=== PATIENT | female | born 2000 | race Caucasian/White ===

== ENCOUNTER 2021-07-22 15:23 | Inpatient (IN) ==
--- NOTE | 2021-07-22 21:53 | History & Physical Report ---
Date of Service July 22, 2021 Assessment & Plan (1) Unfavorable cervix in term : Plan: cervical balloon successfully placed plan continuation of IOL in the am 07/23/21 written and verbal instructions given to patient Admission and Anticipated Discharge Date Admission Date: July 22, 2021 History of Present Illness Primary Care Provider: Chencho Cassidy DO Patient is a 20 yo white female EDC 07/17/21 who presents for cervical balloon placement because of unfavorable cervix at 40 5/7 weeks. She was having what she thought were regular contractions but cervical exam is unchanged from exam yesterday. (-) SPROM (-) bloody show. GBS-positive Allergies Allergy/AdvReac Type Severity Reaction Status Date / Time amoxicillin Allergy Mild rash Verified 07/21/21 11:25 Home Medications Medication Instructions Recorded Confirmed Type venlafaxine 37.5 mg 37.5 mg PO DAILY 03/30/21 07/22/21 History capsule,extended release 24 hr (Effexor XR) [id number] 1 mg 1 tab PO DAILY 07/22/21 07/22/21 History tablet Patient History Medical History (Updated 07/22/21 @ 21:55 by aMrylou Abbott MD, FACOG) Cyclothymic disorder History of drug dependence Surgical History (Updated 03/30/21 @ 11:22 by Kari Jimenez RN) H/O oral surgery Family History (Updated 04/14/21 @ 14:11 by Kari Jimenez RN) Mother Hypertension Denies family history of Ovarian cancer Prostate cancer Breast cancer Colorectal cancer Social History (Updated 04/14/21 @ 14:15 by Kari Jimenez RN) Smoking Status: Never smoker Second Hand Exposure: No; Hx Alcohol Use: No Hx Substance Use: Yes Non-Prescribed Medications Comment: meth and herion Last Used Substance Other:: over a year Substance Use Type Other:: meth Preferred Language: Czech Visual Impairment: No Limitations Hearing Ability: Normal Beliefs That Will Affect Care: None marital status: Single marital status details: Gokul Muñiz (21) [phone] Current Living Situation: Significant Other Current Living Situation Comment: lives with FOB and 1 cat. 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 Feels Safe at Home: Yes Safety Concerns: Feels Safe At This Time Review of Systems All systems reviewed & are unremarkable except as noted in HPI & below Physical Exam Constitutional: WD/WN, vitals as above Respiratory: normal respiratory effort, lungs clear to auscultation Cardiovascular: RRR, no murmur, no edema Psychiatric: A+Ox3, euthymic affect Genitourinary: OB Exam Abdomen: + vertex, + estimated weight (7-8 pounds) and + irregular contractions Manual OB Exam: + cervical dilation 1 cm, + cervical effacement 80% and + station 0 OB Exam Monitor Tracing: + external FHT monitor used, + external uterine monitor used, + category I and + normal FHT variability speculum placed vaginally and cervix visualized. Quan catheter placed easily into the cervix . 40cc water placed into the balloon and the catheter then placed on traction and attached to left thigh. patient tolerated procedure well. Results & Data ([facility]) Vital Signs (Past 12 Hours) Vital Signs Temp Resp BP 07/22/21 20:23 98.6 F 07/22/21 19:17 18 07/22/21 19:14 135/98 Coding Level of Care Code 78351 Office/Outpt Visit, Est Diagnoses Unfavorable cervix in term O34.40 CPT Codes Misx Procedure Codes - 70472 Placement of cervical dilator: 01378 Placement of cervical dilator ([id number])
[2021-07-23] MEDS ORDERED: VENLAFAXINE HCL XR 37.5 MG CAPXR PO SCH (09:00)
== END 2021-07-22 22:20 | disposition home or self-care (01) | DRG 833 ==
LOC: 4S1 18:48

== ENCOUNTER 2021-07-23 07:39 | Inpatient (IN) ==
[2021-07-23 08:34] LABS: Amphetamines+Metham, Urine Neg (Neg); Barbiturates, Urine Neg (Neg); Benzodiazepine, Urine Neg (Neg); Cocaine, Urine Neg (Neg); MDMA (Ecstacy), Urine Neg (Neg); Methadone, Urine Neg (Neg); Opiate, Urine Neg (Neg); Phencyclidine, Urine Neg (Neg)
[2021-07-23] MEDS ORDERED: PENICILLIN G POTASSIUM 6 MU in DEXTROSE 5% 250 ML IV STA (08:49)
[2021-07-23] MEDS ORDERED: OXYTOCIN 30 UNITS/500 ML BAG IV PRN ×2 (08:49)
--- NOTE | 2021-07-23 09:06 | Communication Note ---
Date of Service: July 23, 2021 S: Patient seen to document cervical exam in anticipation of scheduled IOL today. She had a manley placed last night, reports it fell out at 0400. Loss of mucus plug continues since then. No VB, ctx, LOF. Has good FM. O: /-2/soft/ant, FHT Cat 1 A: Planned IOL today for Postdates. Will need abx for GBS positivity P: PCN ordered (has allergy, listed only as rash therefore PCN is recommended) and Pitocin is ordered. Management to be per covering MD today, Dr. Ortiz.
[2021-07-23] MEDS: LACTATED RINGER'S 1,000 ML IV PRN ×2 (09:10→13:00)
[2021-07-23 09:22] LABS: Hematocrit (blood only) 30.9 % (37-47); Hemoglobin 9.9 g/dL (12.0-16.0); Mean Corpuscular Hemoglobin 27.7 pg (25-34); Mean Corpuscular Volume 86.3 fL (80-100); Mean Platelet Volume 12.3 fL (7.4-10.4); Nucleated RBC # (auto) 0.03 K/uL (0-0); Nucleated RBC % (auto) 0.2 %; Platelet Count 213 K/uL (130-400); RDW Coefficient of Variation 14.1 % (11.5-14.5); RDW Standard Deviation 44.2 fL (36.4-46.3); Red Blood Count 3.58 M/uL (4.2-5.4); White Blood Count 12.07 K/uL (4.8-10.8)
[2021-07-23] MEDS ORDERED: BUPIVACAINE 0.25% 30 ML VIAL ONE (12:23)
[2021-07-23] MEDS ORDERED: fentaNYL citrate 100 MCG/2 ML VIAL ONE ×2 (12:23→20:04)
[2021-07-23] MEDS ORDERED: ePHEDrine sulfate 50 MG/ML AMP ONE (12:23)
[2021-07-23] MEDS ORDERED: SODIUM CHLORIDE 0.9% INJ 10 ML VIAL ONE (12:23)
[2021-07-23] MEDS ORDERED: fentaNYL 2MCG/ML ROPIVACAINE 1.25MG/ML 100 ML BAG EPI ONE (12:24)
[2021-07-23] MEDS ORDERED: NALOXONE HCL 0.4 MG/1 ML VIAL/CARP IV PRN ×2 (12:36→19:58)
[2021-07-23] MEDS ORDERED: ePHEDrine sulfate 50 MG/ML AMP IV PRN ×2 (12:36→19:58)
[2021-07-23] MEDS ORDERED: NALBUPHINE HCL INJ 10 MG/ML AMP IV PRN ×2 (12:36→19:58)
[2021-07-23] MEDS ORDERED: ONDANSETRON INJ 2 MG/ML 2 ML VIAL IV PRN ×3 (12:36→21:49)
[2021-07-23] MEDS ORDERED: diphenhydrAMINE 50 MG/ML VIAL IV PRN ×2 (12:36→19:58)
[2021-07-23] MEDS ORDERED: NALOXONE HCL 1 MG in SODIUM CHLORIDE 0.9% 1000ML 1,000 ML IV PRN ×2 (12:36→19:58)
--- NOTE | 2021-07-23 12:40 | Anesthesiology Consultation ---
Date of Service July 23, 2021 Assessment & Plan Chart Review Chart Review: Patient NOT seen in Pre Admission Testing and Acceptable Risk for Labor Epidural Consults Requested none ASA ASA2 Proposed Anesthesia Anesthesia Type: Labor Epidural and CSE Risk / Benefits Reviewed With: PT / POA / Parent / Guardian, Accepts Plan and Informed Consent Obtained History Height/Weight Height: 5 ft 4 in Weight: 79.5 kg Allergies Allergy/AdvReac Type Severity Reaction Status Date / Time amoxicillin Allergy Mild rash Verified 07/21/21 11:25 Medications Home Medications Medication Instructions Recorded Confirmed Last Taken venlafaxine 37.5 mg 37.5 mg PO DAILY 03/30/21 07/23/21 Unknown capsule,extended release 24 hr (Effexor XR) [id number]-[id number] 1 mg 1 tab PO DAILY 07/22/21 07/23/21 07/16/21 tablet Active Medications Generic Name Dose Route Start Last Admin Trade Name Freq PRN Reason Stop Dose Admin Oxytocin 30 units in 500 mls @ 11 mls/hr 07/23/21 08:49 07/23/21 11:55 Pitocin IV 07/25/21 08:48 0.66 units/hr .Q24H PRN 11 mls/hr Labor Induction/Augmentation Titration Protocol 0.66 UNITS/HR Lactated Ringer's 1,000 mls @ 125 mls/hr 07/23/21 08:49 07/23/21 12:15 Lr IV 07/25/21 08:48 999 mls/hr .Q8H PRN Infusion L&D Protocol Protocol NPO Date Last Intake of Fluids: 07/23/21 Time Last Intake of Fluids: 12:00 Date Last Intake of Solids: 07/23/21 Time Last Intake of Solids: 06:30 Past Medical History Medical History Cyclothymic disorder Gestational diabetes mellitus (GDM) affecting , antepartum Hepatitis C History of drug dependence Exercise / Class Metabolic Activity II 4-5 Yardwork/Stairs/Walk up hill Past Family History Family History Mother Hypertension Denies family history of Ovarian cancer Prostate cancer Breast cancer Colorectal cancer Past Surgical History Surgical History H/O oral surgery Past Anesthesia History No Hx of Anesthesia Complications and No Family Hx of Anesthesia Complications History of PONV No Hx of PONV and No Hx of Motion Sickness Social History Smoking Status: Never smoker Hx Alcohol Use: No Hx Substance Use: No substance use type: heroin Substance Use Type Other:: meth Last Used Substance Other:: over a year Review of Systems no chest pain or sob Physical Exam Vital Signs Last Vital Signs Temp 38.6 C H 07/23/21 12:01 Pulse 91 H 07/23/21 12:29 Resp 18 07/23/21 12:01 BP 124/63 07/23/21 12:04 Pulse Ox 100 07/23/21 12:29 ENMT Mouth: no TMJ abnormality Thyromental Distance: > or= 3.5 Finger Breadths Mallampati Class: II Neck normal visual inspection Respiratory normal respiratory effort Auscultation: lungs clear to auscultation bilaterally Cardiovascular Rate/Rhythm: regular rate and regular rhythm Musculoskeletal Spine: normal cervical ROM Neurologic moves all extremities Psychiatric Orientation: alert and oriented x 3 Testing Laboratory Results 07/23/21 09:05
[2021-07-23] MEDS: fentaNYL 2MCG/ML ROPIVACAINE 1.25MG/ML 100 ML BAG EPI PRN ×2 (12:59→18:50)
[2021-07-23] MEDS: PENICILLIN G POTASSIUM 3 MU in DEXTROSE 5% 100 ML IV PRN ×2 (13:37→17:56)
--- NOTE | 2021-07-23 16:01 | Labor Progress Brief Note ---
Date of Service July 23, 2021 Patient was supposed to be induced yesterday but had to be delayed due to dizziness of the unit she has induced with Pitocin today she had a cervical Quan last night artificial rupture of membranes was done after epidural contraction pattern is not great yet so an IUPC was just placed we will monitor the contraction process for Assessment & Plan Admission and Anticipated Discharge Date Admission Date: July 23, 2021 Results & Data ([facility]) Vital Signs (Past 12 Hours) Vital Signs Temp Pulse Resp BP Pulse Ox 07/23/21 15:56 76 100 07/23/21 15:51 79 100 07/23/21 15:47 77 130/72 07/23/21 15:46 78 97 07/23/21 15:42 80 94 07/23/21 15:41 73 96 07/23/21 15:36 82 96 07/23/21 15:32 81 118/70 07/23/21 15:31 97 H 99 07/23/21 15:26 92 H 98 07/23/21 15:21 79 98 07/23/21 15:18 71 110/68 07/23/21 15:16 85 97 07/23/21 15:15 98.6 F 16 07/23/21 15:11 75 98 07/23/21 15:06 97 H 100 07/23/21 15:02 83 124/82 07/23/21 15:01 83 99 07/23/21 14:56 86 98 07/23/21 14:51 79 98 07/23/21 14:46 76 97 07/23/21 14:41 64 99 07/23/21 14:37 98.2 F 18 07/23/21 14:36 90 100 07/23/21 14:33 79 120/59 L 07/23/21 14:31 73 99 07/23/21 14:26 70 99 07/23/21 14:21 69 100 07/23/21 14:17 81 125/72 07/23/21 14:16 84 100 07/23/21 14:11 82 99 07/23/21 14:06 92 H 100 07/23/21 14:02 72 123/76 07/23/21 14:01 86 99 07/23/21 13:56 79 99 07/23/21 13:51 80 99 07/23/21 13:48 68 127/67 07/23/21 13:46 67 99 07/23/21 13:41 84 98 07/23/21 13:36 71 100 07/23/21 13:32 71 111/57 L 07/23/21 13:31 79 96 07/23/21 13:26 89 99 07/23/21 13:21 88 99 07/23/21 13:18 88 117/76 07/23/21 13:16 81 100 07/23/21 13:14 98 H 113/69 07/23/21 13:12 77 124/64 07/23/21 13:11 87 98 07/23/21 13:10 82 125/70 07/23/21 13:08 81 126/77 07/23/21 13:06 79 118/66 97 07/23/21 13:05 18 07/23/21 13:04 88 119/66 07/23/21 13:02 87 115/72 07/23/21 13:01 90 99 07/23/21 13:00 86 122/75 07/23/21 12:58 84 127/77 07/23/21 12:56 93 H 126/82 100 07/23/21 12:54 88 137/78 07/23/21 12:51 86 100 07/23/21 12:46 85 100 07/23/21 12:29 91 H 100 07/23/21 12:04 73 124/63 07/23/21 12:01 98.4 F 18 07/23/21 11:26 72 120/71 07/23/21 11:25 97.9 F 18 07/23/21 11:00 18 07/23/21 10:35 78 116/74 07/23/21 09:30 90 121/65 07/23/21 07:45 98.2 F 109 H 18 123/74 Coding Level of Care Code None
--- NOTE | 2021-07-23 18:45 | Labor Progress Brief Note ---
Date of Service July 23, 2021 Patient is still 4 cm there is been very little change since this morning she started off at 3 cm there is some molding palpated the IUPC is registering at least 200 milliunits per 10-minute block there is some dysfunctional labor pattern as well despite the fact that we have a fairly high level of Pitocin. The heart rate is category 1 We discussed the potential reasons for the delayed progress I still would like to give her more time we did discuss if there is no change at all that we may have to consider the option of section at this stage though I do not think she has met the criteria I will check her again in an hour's time Assessment & Plan Admission and Anticipated Discharge Date Admission Date: July 23, 2021 Results & Data ([facility]) Vital Signs (Past 12 Hours) Vital Signs Temp Pulse Resp BP Pulse Ox 07/23/21 18:41 99 H 100 07/23/21 18:36 90 100 07/23/21 18:31 101 H 100 07/23/21 18:26 72 100 07/23/21 18:21 84 100 07/23/21 18:17 82 126/58 L 07/23/21 18:16 80 100 07/23/21 18:11 79 99 07/23/21 18:06 79 99 07/23/21 18:02 72 113/56 L 07/23/21 18:01 76 99 07/23/21 17:56 81 99 07/23/21 17:51 88 99 07/23/21 17:46 81 119/74 97 07/23/21 17:41 82 98 07/23/21 17:36 82 99 07/23/21 17:31 107 H 116/73 99 07/23/21 17:26 87 99 07/23/21 17:21 84 99 07/23/21 17:18 72 117/72 07/23/21 17:16 79 99 07/23/21 17:11 75 99 07/23/21 17:06 84 97 07/23/21 17:03 88 102/62 07/23/21 17:01 89 98 07/23/21 16:56 90 99 07/23/21 16:51 76 99 07/23/21 16:46 70 125/68 100 07/23/21 16:41 70 99 07/23/21 16:36 78 94 07/23/21 16:33 70 121/59 L 07/23/21 16:31 86 99 07/23/21 16:26 80 100 07/23/21 16:22 78 90 07/23/21 16:21 75 98 07/23/21 16:16 71 126/68 99 07/23/21 16:11 71 99 07/23/21 16:06 66 99 07/23/21 16:02 76 122/64 07/23/21 16:01 79 99 07/23/21 15:56 76 100 07/23/21 15:51 79 100 07/23/21 15:47 77 130/72 07/23/21 15:46 78 97 07/23/21 15:42 80 94 07/23/21 15:41 73 96 07/23/21 15:36 82 96 07/23/21 15:32 81 118/70 07/23/21 15:31 97 H 99 07/23/21 15:26 92 H 98 07/23/21 15:21 79 98 07/23/21 15:18 71 110/68 07/23/21 15:16 85 97 07/23/21 15:15 98.6 F 16 07/23/21 15:11 75 98 07/23/21 15:06 97 H 100 07/23/21 15:02 83 124/82 07/23/21 15:01 83 99 07/23/21 14:56 86 98 07/23/21 14:51 79 98 07/23/21 14:46 76 97 07/23/21 14:41 64 99 07/23/21 14:37 98.2 F 18 07/23/21 14:36 90 100 07/23/21 14:33 79 120/59 L 07/23/21 14:31 73 99 07/23/21 14:26 70 99 07/23/21 14:21 69 100 07/23/21 14:17 81 125/72 07/23/21 14:16 84 100 07/23/21 14:11 82 99 07/23/21 14:06 92 H 100 07/23/21 14:02 72 123/76 07/23/21 14:01 86 99 07/23/21 13:56 79 99 07/23/21 13:51 80 99 07/23/21 13:48 68 127/67 07/23/21 13:46 67 99 07/23/21 13:41 84 98 07/23/21 13:36 71 100 07/23/21 13:32 71 111/57 L 07/23/21 13:31 79 96 07/23/21 13:26 89 99 07/23/21 13:21 88 99 07/23/21 13:18 88 117/76 07/23/21 13:16 81 100 07/23/21 13:14 98 H 113/69 07/23/21 13:12 77 124/64 07/23/21 13:11 87 98 07/23/21 13:10 82 125/70 07/23/21 13:08 81 126/77 07/23/21 13:06 79 118/66 97 07/23/21 13:05 18 07/23/21 13:04 88 119/66 07/23/21 13:02 87 115/72 07/23/21 13:01 90 99 07/23/21 13:00 86 122/75 07/23/21 12:58 84 127/77 07/23/21 12:56 93 H 126/82 100 07/23/21 12:54 88 137/78 07/23/21 12:51 86 100 07/23/21 12:46 85 100 07/23/21 12:29 91 H 100 07/23/21 12:04 73 124/63 07/23/21 12:01 98.4 F 18 07/23/21 11:26 72 120/71 07/23/21 11:25 97.9 F 18 07/23/21 11:00 18 07/23/21 10:35 78 116/74 07/23/21 09:30 90 121/65 07/23/21 07:45 98.2 F 109 H 18 123/74 Coding Level of Care Code None
--- NOTE | 2021-07-23 19:38 | Labor Progress Brief Note ---
Date of Service July 23, 2021 Cervix still 4 cm molding increased this is been 6 hours continuous at the same cervical dilation and certainly in the last 3-1/2 hours adequate contractions I have suggested section the patient agrees we discussed risk benefits and alternatives including the option of continuing labor section. The patient was counseled to the nature of the procedure including alternatives such as labor. Risks were discussed including bleeding infection injury to bowel bladder ureter vessels and even baby. Deep Vein thrombosis, pulmonary embolus discussed. Breakdown of incision reviewed. Deep vein thrombosis pulmonary embolus hernia and failure of the incision to heal were discussed Patient verbalized understanding of this and was given ample time to ask questions Assessment & Plan Admission and Anticipated Discharge Date Admission Date: July 23, 2021 Results & Data ([facility]) Vital Signs (Past 12 Hours) Vital Signs Temp Pulse Resp BP Pulse Ox 07/23/21 19:31 108 H 100 07/23/21 19:26 90 97 07/23/21 19:21 96 H 99 07/23/21 19:18 80 119/75 07/23/21 19:16 91 H 97 07/23/21 19:11 104 H 99 07/23/21 19:06 91 H 99 07/23/21 19:03 90 137/70 07/23/21 19:01 88 99 07/23/21 19:00 99.1 F 18 07/23/21 18:56 105 H 100 07/23/21 18:51 90 100 07/23/21 18:47 105 H 130/61 07/23/21 18:46 92 H 100 07/23/21 18:41 99 H 100 07/23/21 18:36 90 100 07/23/21 18:31 101 H 100 07/23/21 18:26 72 100 07/23/21 18:21 84 100 07/23/21 18:17 82 126/58 L 07/23/21 18:16 80 100 07/23/21 18:11 79 99 07/23/21 18:06 79 99 07/23/21 18:02 72 113/56 L 07/23/21 18:01 76 99 07/23/21 17:56 81 99 07/23/21 17:51 88 99 07/23/21 17:46 81 119/74 97 07/23/21 17:41 82 98 07/23/21 17:36 82 99 07/23/21 17:31 107 H 116/73 99 07/23/21 17:26 87 99 07/23/21 17:21 84 99 07/23/21 17:18 72 117/72 07/23/21 17:16 79 99 07/23/21 17:11 75 99 07/23/21 17:06 84 97 07/23/21 17:03 88 102/62 07/23/21 17:01 89 98 07/23/21 16:56 90 99 07/23/21 16:51 76 99 07/23/21 16:46 70 125/68 100 07/23/21 16:41 70 99 07/23/21 16:36 78 94 07/23/21 16:33 70 121/59 L 07/23/21 16:31 86 99 07/23/21 16:26 80 100 07/23/21 16:22 78 90 07/23/21 16:21 75 98 07/23/21 16:16 71 126/68 99 07/23/21 16:11 71 99 07/23/21 16:06 66 99 07/23/21 16:02 76 122/64 07/23/21 16:01 79 99 07/23/21 15:56 76 100 07/23/21 15:51 79 100 07/23/21 15:47 77 130/72 07/23/21 15:46 78 97 07/23/21 15:42 80 94 07/23/21 15:41 73 96 07/23/21 15:36 82 96 07/23/21 15:32 81 118/70 07/23/21 15:31 97 H 99 07/23/21 15:26 92 H 98 07/23/21 15:21 79 98 07/23/21 15:18 71 110/68 07/23/21 15:16 85 97 07/23/21 15:15 98.6 F 16 07/23/21 15:11 75 98 07/23/21 15:06 97 H 100 07/23/21 15:02 83 124/82 07/23/21 15:01 83 99 07/23/21 14:56 86 98 07/23/21 14:51 79 98 07/23/21 14:46 76 97 07/23/21 14:41 64 99 07/23/21 14:37 98.2 F 18 07/23/21 14:36 90 100 07/23/21 14:33 79 120/59 L 07/23/21 14:31 73 99 07/23/21 14:26 70 99 07/23/21 14:21 69 100 07/23/21 14:17 81 125/72 07/23/21 14:16 84 100 07/23/21 14:11 82 99 07/23/21 14:06 92 H 100 07/23/21 14:02 72 123/76 07/23/21 14:01 86 99 07/23/21 13:56 79 99 07/23/21 13:51 80 99 07/23/21 13:48 68 127/67 07/23/21 13:46 67 99 07/23/21 13:41 84 98 07/23/21 13:36 71 100 07/23/21 13:32 71 111/57 L 07/23/21 13:31 79 96 07/23/21 13:26 89 99 07/23/21 13:21 88 99 07/23/21 13:18 88 117/76 07/23/21 13:16 81 100 07/23/21 13:14 98 H 113/69 07/23/21 13:12 77 124/64 07/23/21 13:11 87 98 07/23/21 13:10 82 125/70 07/23/21 13:08 81 126/77 07/23/21 13:06 79 118/66 97 07/23/21 13:05 18 07/23/21 13:04 88 119/66 07/23/21 13:02 87 115/72 07/23/21 13:01 90 99 07/23/21 13:00 86 122/75 07/23/21 12:58 84 127/77 07/23/21 12:56 93 H 126/82 100 07/23/21 12:54 88 137/78 07/23/21 12:51 86 100 07/23/21 12:46 85 100 07/23/21 12:29 91 H 100 07/23/21 12:04 73 124/63 07/23/21 12:01 98.4 F 18 07/23/21 11:26 72 120/71 07/23/21 11:25 97.9 F 18 07/23/21 11:00 18 07/23/21 10:35 78 116/74 07/23/21 09:30 90 121/65 07/23/21 07:45 98.2 F 109 H 18 123/74 Coding Level of Care Code None
[2021-07-23] MEDS ORDERED: CITRIC ACID/SODIUM CITRATE 15 ML UDC PO SCH (19:45)
[2021-07-23] MEDS ORDERED: LACTATED RINGER'S 1,000 ML IV SCH ×2 (19:45→21:49)
[2021-07-23] MEDS ORDERED: ceFAZolin 2000MG 2,000 MG/15 ML SYR IV SCH (19:45)
[2021-07-23] MEDS ORDERED: LACTATED RINGER'S 500 ML IV PRN (19:58)
[2021-07-23] MEDS ORDERED: MoRPHine SULFATE PF 1 MG/ML 10 ML AMP/VIAL EPI ONE (19:58)
[2021-07-23] MEDS ORDERED: NALOXONE HCL 0.08 MG in SYRINGE 1.8 ML IV PRN (19:58)
[2021-07-23] MEDS ORDERED: SODIUM CHLORIDE 0.9% 1000ML 1,000 ML IV SCH (20:00)
[2021-07-23] MEDS ORDERED: NO NARCOTICS OR SEDATIVES SCH (20:00)
[2021-07-23] MEDS ORDERED: DC INTRASPINAL MORPHINE SCH (20:00)
[2021-07-23] MEDS ORDERED: LIDOCAINE 2%/EPINEPHRINE 1:200,000 20 ML SDV ONE ×2 (20:04→20:24)
[2021-07-23] MEDS ORDERED: MoRPHine SULFATE PF 1 MG/ML 10 ML AMP/VIAL ONE (20:17)
[2021-07-23] MEDS ORDERED: OXYTOCIN 10 UNITS/ML VIAL ONE (20:17)
[2021-07-23] MEDS ORDERED: PHENYLEPHRINE 100MCG/ML 5ML SYR ONE (20:29)
[2021-07-23] MEDS ORDERED: ESMOLOL HCL INJ 10 MG/ML 10ML VIAL IV ONE (20:40)
[2021-07-23] MEDS ORDERED: ONDANSETRON INJ 2 MG/ML 2 ML VIAL ONE (20:41)
[2021-07-23 21:12] LABS: Cord Venous Blood HCO3 24 mmol/L (18.4-26.8); Cord Venous Blood PCO2 45 mmHg (30.4-57.2); Cord Venous Blood PO2 25 mmHg (14.1-43.3); Cord Venous Blood pH 7.35 (7.20-7.44)
[2021-07-23 21:13] LABS: Base Excess Cord Arterial Bld -2.2 mEq/L (-9-1.8); CO2 Cord Arterial Blood 61 mmHg (39.1-73.5); HCO3 Cord Arterial Blood 27 mmol/L (19.7-28.5); PO2 Cord Arterial Blood 14 mmHg (4.1-31.7); pH Cord Arterial Blood 7.26 (7.1-7.38)
--- NOTE | 2021-07-23 21:16 | Operative Report ---
PG Post Operative Report Pre & Post Diagnosis Operation Date: 07/23/21 20:15 Pre-Op Diagnosis: Term Primary Section for Failure to Progress under services of Dr Ortiz for a viable baby girl at 2035 Post-Op Diagnosis: Term Primary Section for Failure to Progress under services of Dr Ortiz for a viable baby girl at 2035 I identified the patient and participated in the time-out.: Yes Procedure Operation Date: 07/23/21 20:15 Actual Procedures p Primary Section in OR #3 for Failure To Progress for a viable baby girl at 2035. - Alejandra Otriz MD, FACOG Surgeon Alejandra Ortiz MD, FACOG [employer] . Estimated Blood Loss 600 Findings Consistent with Post-Op Diagnosis Specimens cord blood, gases Description of Procedure Regional anesthetic was given by anesthesia patient had a Quan catheter inserted by nursing patient was prepped and draped in supine position with a leftward tilt preoperative antibiotics were given timeout performed Pickups with teeth were used to test the skin site and it was found adequate for incision scalpel used to make a Pfannenstiel incision cutting down through subcutaneous fat through the fascia fascia was then dissected laterally with the curved Almodovar's fascia was released superiorly and inferiorly from the rectus muscles with the curved Almodovar scissors, rectus muscle split peritoneal cavity entered in a superior location. Opening enlarged to allow exposure bladder retractor placed Metzenbaums used to dissect away the bladder flap low segment transverse incision made on the uterus with scalpel entry was done bluntly with the double end tenon operator's finger hysterotomy incision extended with the double end tenon operator's finger in the usual fashion baby was delivered then by flexion of the head and pressure from the retirement assistant on the abdomen mouth and then nares were suctioned baby was then delivered fully without difficulty without excessive force live vigorous infant cord clamped and cut cord gases obtained cord blood obtained placenta removed manually within ensured all placenta removed with a moist lap sponge uterus exteriorized IV Pitocin had been started by anesthesia and uterine tone improved. The uterus was closed in 2 layers first layer and 0 Monocryl running locked second layer 0 Monocryl nonlocked after generous irrigation and suction of the cul-de-sac and bladder flap regions hemostasis was excellent uterus was placed back in the peritoneal cavity and hemostasis was excellent rectus muscles were inspected and found to be dry fascia closed with 0 Vicryl subcutaneous fat closed with 3-0 Vicryl prior to this subcutaneous fat was irrigated skin closed with 4-0 subcuticular Monocryl incision Steri-Stripped urine was clear at the end of the procedure uterus adnexa normal I attest to the content of the Intraoperative Record and any orders documented therein. Any exceptions are noted below. OB Procedure Charges 49497
[2021-07-23 21:26] LABS: O2 Saturation Cord Venous Bld < 60.0 % (<68); Oxygen Sat Cord Arterial Blood < 60.0 % (<60)
[2021-07-23] MEDS ORDERED: SENNA 8.6 MG TAB PO PRN (21:49)
[2021-07-23] MEDS ORDERED: DIPHTHERIA/TETANUS/PERTUSSIS 0.5 ML SYR/VIAL IM ONE (21:49)
[2021-07-23] MEDS ORDERED: MAGNESIUM HYDROXIDE SUSP 30 ML UDC PO PRN (21:49)
[2021-07-23] MEDS ORDERED: SUPERCREAM 0.870% 15 GM JAR EXT PRN (21:49)
[2021-07-23] MEDS ORDERED: PROMETHAZINE HCL 25 MG in SODIUM CHLORIDE 0.9% 50 ML IV PRN (21:49)
[2021-07-23] MEDS ORDERED: HYDROCORTISONE ACETATE 25 MG SUPP PR PRN (21:49)
[2021-07-23] MEDS ORDERED: BENZOCAINE 20% AER SPR 82.5 GM CAN EXT PRN (21:49)
[2021-07-23] MEDS ORDERED: METOPROLOL TARTRATE 1 MG/ML VIAL IV ONE ×2 (22:19→22:33)
--- NOTE | 2021-07-23 23:04 | Anesthesiology Progress Note ---
Date of Service July 23, 2021 Anesthesia Post Procedure Vital Signs Vital Signs: Temp Pulse Resp BP Pulse Ox 07/23/21 22:56 110 H 98 07/23/21 22:54 101 H 110/70 07/23/21 22:51 112 H 96 07/23/21 22:46 108 H 99 07/23/21 22:45 102 H 131/55 L 07/23/21 22:41 101 H 97 07/23/21 22:36 114 H 97 07/23/21 22:31 119 H 99 07/23/21 22:26 107 H 93 07/23/21 22:24 123 H 126/59 L 07/23/21 22:22 127 H 129/59 L 07/23/21 22:21 127 H 100 07/23/21 22:16 144 H 100 07/23/21 22:11 148 H 100 07/23/21 22:06 153 H 100 07/23/21 22:01 118 H 98 07/23/21 21:56 116 H 98 07/23/21 21:54 120 H 112/57 L 07/23/21 21:51 116 H 98 07/23/21 21:46 121 H 98 07/23/21 21:44 142 H 107/62 07/23/21 21:41 146 H 116/62 100 07/23/21 21:36 148 H 100 07/23/21 21:34 133 H 122/59 L 07/23/21 21:31 152 H 100 07/23/21 21:26 127 H 98 07/23/21 21:22 120 H 121/66 07/23/21 21:21 132 H 97 07/23/21 21:17 139 H 98/54 L 07/23/21 21:16 152 H 99 07/23/21 20:02 96 H 121/57 L 07/23/21 20:01 96 H 99 07/23/21 19:56 93 H 97 07/23/21 19:51 99 H 98 07/23/21 19:47 98 H 124/61 07/23/21 19:46 101 H 99 07/23/21 19:41 100 H 99 07/23/21 19:39 113 H 146/65 H 07/23/21 19:36 128 H 100 07/23/21 19:31 108 H 100 07/23/21 19:26 90 97 07/23/21 19:21 96 H 99 07/23/21 19:18 80 119/75 07/23/21 19:16 91 H 97 07/23/21 19:11 104 H 99 07/23/21 19:06 91 H 99 07/23/21 19:03 90 137/70 07/23/21 19:01 88 99 07/23/21 19:00 37.3 C 18 07/23/21 18:56 105 H 100 07/23/21 18:51 90 100 07/23/21 18:47 105 H 130/61 07/23/21 18:46 92 H 100 07/23/21 18:41 99 H 100 07/23/21 18:36 90 100 07/23/21 18:31 101 H 100 07/23/21 18:26 72 100 07/23/21 18:21 84 100 07/23/21 18:17 82 126/58 L 07/23/21 18:16 80 100 07/23/21 18:11 79 99 07/23/21 18:06 79 99 07/23/21 18:02 72 113/56 L 07/23/21 18:01 76 99 07/23/21 17:56 81 99 07/23/21 17:51 88 99 07/23/21 17:46 81 119/74 97 07/23/21 17:41 82 98 07/23/21 17:36 82 99 07/23/21 17:31 107 H 116/73 99 07/23/21 17:26 87 99 07/23/21 17:21 84 99 07/23/21 17:18 72 117/72 07/23/21 17:16 79 99 07/23/21 17:11 75 99 07/23/21 17:06 84 97 07/23/21 17:03 88 102/62 07/23/21 17:01 89 98 07/23/21 16:56 90 99 07/23/21 16:51 76 99 07/23/21 16:46 70 125/68 100 07/23/21 16:41 70 99 07/23/21 16:36 78 94 07/23/21 16:33 70 121/59 L 07/23/21 16:31 86 99 07/23/21 16:26 80 100 07/23/21 16:22 78 90 12/03/21 16:21 75 98 07/23/21 16:16 71 126/68 99 07/23/21 16:11 71 99 07/23/21 16:06 66 99 07/23/21 16:02 76 122/64 07/23/21 16:01 79 99 07/23/21 15:56 76 100 07/23/21 15:51 79 100 07/23/21 15:47 77 130/72 07/23/21 15:46 78 97 07/23/21 15:42 80 94 07/23/21 15:41 73 96 07/23/21 15:36 82 96 07/23/21 15:32 81 118/70 07/23/21 15:31 97 H 99 07/23/21 15:26 92 H 98 07/23/21 15:21 79 98 07/23/21 15:18 71 110/68 07/23/21 15:16 85 97 07/23/21 15:15 37.0 C 16 07/23/21 15:11 75 98 07/23/21 15:06 97 H 100 07/23/21 15:02 83 124/82 07/23/21 15:01 83 99 07/23/21 14:56 86 98 07/23/21 14:51 79 98 07/23/21 14:46 76 97 07/23/21 14:41 64 99 07/23/21 14:37 36.8 C 18 07/23/21 14:36 90 100 07/23/21 14:33 79 120/59 L 07/23/21 14:31 73 99 07/23/21 14:26 70 99 07/23/21 14:21 69 100 07/23/21 14:17 81 125/72 07/23/21 14:16 84 100 07/23/21 14:11 82 99 07/23/21 14:06 92 H 100 07/23/21 14:02 72 123/76 07/23/21 14:01 86 99 07/23/21 13:56 79 99 07/23/21 13:51 80 99 07/23/21 13:48 68 127/67 07/23/21 13:46 67 99 07/23/21 13:41 84 98 07/23/21 13:36 71 100 07/23/21 13:32 71 111/57 L 07/23/21 13:31 79 96 07/23/21 13:26 89 99 07/23/21 13:21 88 99 07/23/21 13:18 88 117/76 07/23/21 13:16 81 100 07/23/21 13:14 98 H 113/69 07/23/21 13:12 77 124/64 07/23/21 13:11 87 98 07/23/21 13:10 82 125/70 07/23/21 13:08 81 126/77 07/23/21 13:06 79 118/66 97 07/23/21 13:05 18 07/23/21 13:04 88 119/66 07/23/21 13:02 87 115/72 07/23/21 13:01 90 99 07/23/21 13:00 86 122/75 07/23/21 12:58 84 127/77 07/23/21 12:56 93 H 126/82 100 07/23/21 12:54 88 137/78 07/23/21 12:51 86 100 07/23/21 12:46 85 100 07/23/21 12:29 91 H 100 07/23/21 12:04 73 124/63 07/23/21 12:01 36.9 C 18 07/23/21 11:26 72 120/71 07/23/21 11:25 36.6 C 18 07/23/21 11:00 18 07/23/21 10:35 78 116/74 07/23/21 09:30 90 121/65 07/23/21 07:45 36.8 C 109 H 18 123/74 Pain Intensity Bilateral Abdomen: Pain Intensity: 0 Transfer of Care Handoff Completed per policy Notes Mental Status: alert / awake / arousable Patient Amnestic to Procedure: Yes Nausea / Vomiting: adequately controlled Pain: adequately controlled Airway Patency, RR, SpO2: stable & adequate BP & HR: stable & adequate and see Notes below Hydration State: stable & adequate Neuraxial Anesthesia: was administered and sensory block is resolving Anesthetic Complications: no major complications apparent and Pt Satisfied with anesthetic care Notes: The patient was anxious during the procedure and remained tachycardic throughout much of it with her HR going up to the 160s at one point. Her HR was in the 120s upon leaving the OR. In recovery her HR was in the 120s to 140s. She was given metoprolol and over one liter of LR. Her HR is now 110. Her other vital signs have been stable throughout and the patient feels well. I spoke with Dr. Ortiz about her tachycardia and he will monitor her.
[2021-07-23] MEDS: KETOROLAC 30 MG/ML VIAL IV PRN (23:20)
[2021-07-23] MEDS: OXYTOCIN 20 UNITS in LACTATED RINGER'S 1,000 ML IV SCH (23:22)
[2021-07-24] MEDS ORDERED: AMMONIA, AROMATIC INHAL 1 EA AMP INH ONE (00:05)
[2021-07-24] MEDS ORDERED: MoRPHine SULFATE 2 MG/ML CARP ONE (00:15)
[2021-07-24] MEDS ORDERED: SODIUM CHLORIDE 0.9% 250 ML IV PRN ×2 (00:17→02:21)
[2021-07-24] MEDS ORDERED: miSOPROStoL 200 MCG TAB PR ONE ×2 (00:21→04:49)
--- NOTE | 2021-07-24 00:21 | Obstetrical Progress Note ---
Date of Service July 24, 2021 Assessment & Plan Admission and Anticipated Discharge Date Admission Date: July 23, 2021 Subjective Patient had increased blood loss post vaginally and then decreased blood pressure on examination the patient's bedside there was increased vaginal bleeding the uterus was well above the fundus I was able to do a limited bimanual internal exam and there was clot in the lower segment of the uterus using a sterile glove I swept this out the uterine tone felt excellent Pitocin was running at 20 units and a liter I increase this to 40 units in a liter. Patient's blood pressure had dropped to 79/50 second line will be started and will cross and typed for 2 units and transfuse for 2 watch carefully Results & Data ([facility]) Vital Signs (Past 12 Hours) Vital Signs Temp Pulse Resp BP Pulse Ox 07/24/21 00:18 85 89/50 L 07/24/21 00:16 84 87/48 L 92 07/24/21 00:15 80 96 07/24/21 00:10 89 79/45 L 91 07/23/21 23:46 111 H 96 07/23/21 23:44 104 H 116/68 07/23/21 23:42 106 H 93 07/23/21 23:41 103 H 97 07/23/21 23:36 112 H 98 07/23/21 23:35 106 H 94 07/23/21 23:34 107 H 108/57 L 07/23/21 23:31 106 H 98 07/23/21 23:29 104 H 92 07/23/21 23:26 104 H 98 07/23/21 23:24 95 H 117/56 L 07/23/21 23:21 104 H 95 07/23/21 23:16 96 H 97 07/23/21 23:14 106 H 108/53 L 07/23/21 23:11 111 H 95 07/23/21 23:06 99 H 96 07/23/21 23:04 105 H 107/57 L 07/23/21 23:01 116 H 96 07/23/21 22:56 110 H 98 07/23/21 22:54 101 H 110/70 07/23/21 22:51 112 H 96 07/23/21 22:46 108 H 99 07/23/21 22:45 102 H 131/55 L 07/23/21 22:41 101 H 97 07/23/21 22:36 114 H 97 07/23/21 22:31 119 H 99 07/23/21 22:26 107 H 93 07/23/21 22:24 123 H 126/59 L 07/23/21 22:22 127 H 129/59 L 07/23/21 22:21 127 H 100 07/23/21 22:16 144 H 100 07/23/21 22:11 148 H 100 07/23/21 22:06 153 H 100 07/23/21 22:01 118 H 98 07/23/21 21:56 116 H 98 07/23/21 21:54 120 H 112/57 L 07/23/21 21:51 116 H 98 07/23/21 21:46 121 H 98 07/23/21 21:44 142 H 107/62 07/23/21 21:41 146 H 116/62 100 07/23/21 21:36 148 H 100 07/23/21 21:34 133 H 122/59 L 07/23/21 21:31 152 H 100 07/23/21 21:26 127 H 98 07/23/21 21:22 120 H 121/66 07/23/21 21:21 132 H 97 07/23/21 21:17 139 H 98/54 L 07/23/21 21:16 152 H 99 07/23/21 20:02 96 H 121/57 L 07/23/21 20:01 96 H 99 07/23/21 19:56 93 H 97 07/23/21 19:51 99 H 98 07/23/21 19:47 98 H 124/61 07/23/21 19:46 101 H 99 07/23/21 19:41 100 H 99 07/23/21 19:39 113 H 146/65 H 07/23/21 19:36 128 H 100 07/23/21 19:31 108 H 100 07/23/21 19:26 90 97 07/23/21 19:21 96 H 99 07/23/21 19:18 80 119/75 07/23/21 19:16 91 H 97 07/23/21 19:11 104 H 99 07/23/21 19:06 91 H 99 07/23/21 19:03 90 137/70 07/23/21 19:01 88 99 07/23/21 19:00 99.1 F 18 07/23/21 18:56 105 H 100 07/23/21 18:51 90 100 07/23/21 18:47 105 H 130/61 07/23/21 18:46 92 H 100 07/23/21 18:41 99 H 100 07/23/21 18:36 90 100 07/23/21 18:31 101 H 100 07/23/21 18:26 72 100 07/23/21 18:21 84 100 07/23/21 18:17 82 126/58 L 07/23/21 18:16 80 100 07/23/21 18:11 79 99 07/23/21 18:06 79 99 07/23/21 18:02 72 113/56 L 07/23/21 18:01 76 99 07/23/21 17:56 81 99 07/23/21 17:51 88 99 07/23/21 17:46 81 119/74 97 07/23/21 17:41 82 98 07/23/21 17:36 82 99 07/23/21 17:31 107 H 116/73 99 07/23/21 17:26 87 99 07/23/21 17:21 84 99 07/23/21 17:18 72 117/72 07/23/21 17:16 79 99 07/23/21 17:11 75 99 07/23/21 17:06 84 97 07/23/21 17:03 88 102/62 07/23/21 17:01 89 98 07/23/21 16:56 90 99 07/23/21 16:51 76 99 07/23/21 16:46 70 125/68 100 07/23/21 16:41 70 99 07/23/21 16:36 78 94 07/23/21 16:33 70 121/59 L 07/23/21 16:31 86 99 07/23/21 16:26 80 100 07/23/21 16:22 78 90 07/23/21 16:21 75 98 07/23/21 16:16 71 126/68 99 07/23/21 16:11 71 99 07/23/21 16:06 66 99 07/23/21 16:02 76 122/64 07/23/21 16:01 79 99 07/23/21 15:56 76 100 07/23/21 15:51 79 100 07/23/21 15:47 77 130/72 07/23/21 15:46 78 97 07/23/21 15:42 80 94 07/23/21 15:41 73 96 07/23/21 15:36 82 96 07/23/21 15:32 81 118/70 07/23/21 15:31 97 H 99 07/23/21 15:26 92 H 98 07/23/21 15:21 79 98 07/23/21 15:18 71 110/68 07/23/21 15:16 85 97 07/23/21 15:15 98.6 F 16 07/23/21 15:11 75 98 07/23/21 15:06 97 H 100 07/23/21 15:02 83 124/82 07/23/21 15:01 83 99 07/23/21 14:56 86 98 07/23/21 14:51 79 98 07/23/21 14:46 76 97 07/23/21 14:41 64 99 07/23/21 14:37 98.2 F 18 07/23/21 14:36 90 100 07/23/21 14:33 79 120/59 L 07/23/21 14:31 73 99 07/23/21 14:26 70 99 07/23/21 14:21 69 100 07/23/21 14:17 81 125/72 07/23/21 14:16 84 100 07/23/21 14:11 82 99 07/23/21 14:06 92 H 100 07/23/21 14:02 72 123/76 07/23/21 14:01 86 99 07/23/21 13:56 79 99 07/23/21 13:51 80 99 07/23/21 13:48 68 127/67 07/23/21 13:46 67 99 07/23/21 13:41 84 98 07/23/21 13:36 71 100 07/23/21 13:32 71 111/57 L 07/23/21 13:31 79 96 07/23/21 13:26 89 99 07/23/21 13:21 88 99 07/23/21 13:18 88 117/76 07/23/21 13:16 81 100 07/23/21 13:14 98 H 113/69 07/23/21 13:12 77 124/64 07/23/21 13:11 87 98 07/23/21 13:10 82 125/70 07/23/21 13:08 81 126/77 07/23/21 13:06 79 118/66 97 07/23/21 13:05 18 07/23/21 13:04 88 119/66 07/23/21 13:02 87 115/72 07/23/21 13:01 90 99 07/23/21 13:00 86 122/75 07/23/21 12:58 84 127/77 07/23/21 12:56 93 H 126/82 100 07/23/21 12:54 88 137/78 07/23/21 12:51 86 100 07/23/21 12:46 85 100 07/23/21 12:29 91 H 100 PG Care Time/CCT Total # of Minutes Spent Total Time Spent with Patient: Total time spent is greater than 50% in coordination of care (as documented) at patient's floor/unit and/or counseling patient: Coding Level of Care Code None
[2021-07-24] MEDS: OXYTOCIN 40 UNITS in LACTATED RINGER'S 1,000 ML IV SCH ×2 (00:30→11:55)
[2021-07-24 00:59] LABS: Partial Thromboplastin Ratio 1.1; Partial Thromboplastin Time 28.2 Seconds (21.0-31.0); Prothrombin Time 10.3 Seconds (9.0-12.0)
--- NOTE | 2021-07-24 01:00 | Anesthesiology Consultation ---
Date of Service July 24, 2021 Assessment & Plan Chart Review Chart Review: Acceptable Risk for Surgery and Patient NOT seen in Pre Admission Testing Consults Requested none ASA [id number] Proposed Anesthesia Anesthesia Type: General Risk / Benefits Reviewed With: PT / POA / Parent / Guardian, Accepts Plan and Informed Consent Obtained History Surgery Operation Date: 07/23/21 20:15 Proposed Procedures p Section in LD - Alejandra Ortiz MD, FACOG Operation Date: 07/24/21 01:00 Proposed Procedures p Labor Delivery Dilation and Curettage - Alejandra Ortiz MD, FACOG Height/Weight Height: 5 ft 4 in Weight: 79.5 kg Allergies Allergy/AdvReac Type Severity Reaction Status Date / Time amoxicillin Allergy Mild rash Verified 07/21/21 11:25 Medications Home Medications Medication Instructions Recorded Confirmed Last Taken venlafaxine 37.5 mg 37.5 mg PO DAILY 03/30/21 07/23/21 Unknown capsule,extended release 24 hr (Effexor XR) [id number] 1 mg 1 tab PO DAILY 07/22/21 07/23/21 07/16/21 tablet Active Medications Generic Name Dose Route Start Last Admin Trade Name Freq PRN Reason Stop Dose Admin Oxytocin 30 units in 500 mls @ 23 mls/hr 07/23/21 08:49 07/23/21 18:15 Pitocin IV 07/25/21 08:48 1.38 units/hr .[id number] PRN 23 mls/hr Labor Induction/Augmentation Titration Protocol 1.38 UNITS/HR Lactated Ringer's 1,000 mls @ 125 mls/hr 07/23/21 08:49 07/23/21 13:00 Lr IV 07/25/21 08:48 125 mls/hr .Q8H PRN Administration L&D Protocol Protocol Oxytocin 20 units/ Lactated 1,002 mls @ 125 mls/hr 07/23/21 22:15 07/23/21 23:22 Ringer's IV 07/24/21 14:16 125 mls/hr .[id number] JERRI Administration Ketorolac Tromethamine 30 mg 07/23/21 19:58 07/23/21 23:20 Ketorolac 30 Mg/Ml Vial IV 07/24/21 13:58 30 mg Q6H PRN Administration Breakthrough Surgical Pain NPO Date Last Intake of Fluids: 07/23/21 Time Last Intake of Fluids: 12:00 Date Last Intake of Solids: 07/23/21 Time Last Intake of Solids: 06:30 Past Medical History Medical History Cyclothymic disorder Gestational diabetes mellitus (GDM) affecting , antepartum Hepatitis C History of drug dependence Exercise / Class Metabolic Activity II 4-5 Yardwork/Stairs/Walk up hill Past Family History Family History Mother Hypertension Denies family history of Ovarian cancer Prostate cancer Breast cancer Colorectal cancer Past Surgical History Surgical History H/O oral surgery Past Anesthesia History No Hx of Anesthesia Complications and No Family Hx of Anesthesia Complications Social History Smoking Status: Never smoker Hx Alcohol Use: No Hx Substance Use: No substance use type: heroin Substance Use Type Other:: meth Last Used Substance Other:: over a year Review of Systems no chest pain or sob Physical Exam Vital Signs Last Vital Signs Temp 37.3 C 07/23/21 19:00 Pulse 106 H 07/24/21 00:56 Resp 18 07/23/21 19:00 BP 84/45 L 07/24/21 00:56 Pulse Ox 100 07/24/21 00:55 Constitutional patient is pale ENMT Mouth: no TMJ abnormality Thyromental Distance: > or= 3.5 Finger Breadths Mallampati Class: II Neck normal visual inspection Respiratory normal respiratory effort Auscultation: lungs clear to auscultation bilaterally Cardiovascular Rate/Rhythm: regular rate and regular rhythm Musculoskeletal Spine: normal cervical ROM Neurologic moves all extremities Psychiatric Orientation: alert and oriented x 3 Testing Laboratory Results Blood Type A Negative 07/23/21 09:05
[2021-07-24] MEDS ORDERED: HYDROmorphone INJ 1 MG/ML SYRINGE IV PRN (01:01)
[2021-07-24] MEDS ORDERED: fentaNYL citrate 100 MCG/2 ML VIAL IV PRN (01:01)
[2021-07-24] MEDS ORDERED: ePHEDrine sulfate 50 MG/ML AMP IV PRN (01:01)
[2021-07-24] MEDS ORDERED: ONDANSETRON INJ 2 MG/ML 2 ML VIAL IV PRN (01:01)
[2021-07-24] MEDS ORDERED: LABETALOL HCL IV 5 MG/ML 20ML IV PRN (01:01)
[2021-07-24] MEDS ORDERED: PHENYLEPHRINE 100MCG/ML 5ML SYR IV PRN (01:01)
[2021-07-24] MEDS ORDERED: ATROPINE SULFATE 0.1 MG/ML 10ML SYR IV PRN (01:01)
[2021-07-24] MEDS ORDERED: PROPOFOL IV EMULSION 10 MG/ML 20 ML VIAL IV ONE (01:04)
[2021-07-24] MEDS ORDERED: fentaNYL citrate 100 MCG/2 ML VIAL ONE (01:05)
[2021-07-24] MEDS ORDERED: LIDOCAINE 2% MPF LOCAL 5 ML VIAL INFIL ONE (01:06)
[2021-07-24] MEDS ORDERED: SUCCINYLCHOLINE CHLORIDE 20 MG/ML 10 ML VIAL IV ONE (01:25)
[2021-07-24] MEDS ORDERED: ONDANSETRON INJ 2 MG/ML 2 ML VIAL ONE (01:25)
[2021-07-24] MEDS ORDERED: PHENYLEPHRINE 100MCG/ML 5ML SYR ONE (01:25)
[2021-07-24] MEDS ORDERED: DEXAMETHASONE SOD INJ 4 MG/ML VIAL ONE (01:26)
[2021-07-24 01:29] LABS: Hematocrit (blood only) 16.5 % (37-47); Hemoglobin 5.2 g/dL (12.0-16.0); Mean Corpuscular Hemoglobin 27.7 pg (25-34); Mean Corpuscular Hgb Conc 31.5 g/dL (32-36); Mean Corpuscular Volume 87.8 fL (80-100); Mean Platelet Volume 11.2 fL (7.4-10.4); Platelet Count 175 K/uL (130-400); RDW Coefficient of Variation 14.1 % (11.5-14.5); RDW Standard Deviation 45.1 fL (36.4-46.3); Red Blood Count 1.88 M/uL (4.2-5.4); White Blood Count 14.74 K/uL (4.8-10.8)
[2021-07-24 01:35] LABS: Basophils # (auto) 0.02 K/uL (0-0.2); Basophils % (auto) 0.1 %; Eosinophils # (auto) 0.01 K/uL (0-0.5); Eosinophils % (auto) 0.1 %; Giant Platelets 1+; Immature Granulocytes # (auto) 0.05 K/uL (0.00-0.02); Immature Granulocytes % (auto) 0.3 %; Lymphocytes # (auto) 1.49 K/uL (1.2-3.4); Lymphocytes % (auto) 10.1 %; Monocytes # (auto) 0.95 K/uL (0.11-0.59); Monocytes % (auto) 6.4 %; Neutrophils # (auto) 12.22 K/uL (1.4-6.5); Polychromasia 1+
[2021-07-24] MEDS ORDERED: CARBOPROST TROMETHAMINE 250 MCG/ML AMPUL ONE (01:40)
--- NOTE | 2021-07-24 01:51 | Operative Report ---
PG Post Operative Report Pre & Post Diagnosis Operation Date: 07/23/21 20:15 Pre-Op Diagnosis: Term Primary Section for Failure to Progress under services of Dr Ortiz for a viable baby girl at 2035 Post-Op Diagnosis: Term Primary Section for Failure to Progress under services of Dr Ortiz for a viable baby girl at 2035 Operation Date: 07/24/21 01:00 <No data on this case meets the specified criteria> I identified the patient and participated in the time-out.: Yes Procedure Operation Date: 07/23/21 20:15 Actual Procedures p Primary Section in OR #3 for Failure To Progress for a viable baby girl at 2035. - Alejandra Ortiz MD, FACOG Operation Date: 07/24/21 01:00 <No data on this case meets the specified criteria> Surgeon Alejandra Ortiz MD, FACOG Aboriginal Education Worker Coordinator . Estimated Blood Loss 600 Findings Consistent with Post-Op Diagnosis I attest to the content of the Intraoperative Record and any orders documented therein. Any exceptions are noted below.
--- NOTE | 2021-07-24 01:51 | Operative Report ---
PG Post Operative Report Pre & Post Diagnosis Operation Date: 07/23/21 20:15 Pre-Op Diagnosis: hemorrhage Post-Op Diagnosis: Term hemorrhage Operation Date: 07/24/21 01:00 <No data on this case meets the specified criteria> I identified the patient and participated in the time-out.: Yes Procedure Operation Date: 07/23/21 20:15 Actual Procedures Examination under anesthesia evacuation of clot from the uterus placement of marcy reballoon Alejandra Ortiz MD, FACOG Operation Date: 07/24/21 01:00 <No data on this case meets the specified criteria> Surgeon Alejandra Ortiz MD, FACOG Maintenance Aide Nehemias Estimated Blood Loss 300 Findings Consistent with Post-Op Diagnosis Specimens none Anesthesia Type General Description of Procedure Patient had an acute hemorrhage was brought back to the operating room given a general anesthetic by the anesthesiologist blood was being transfused as well along with Ancef 2 g was given timeout was performed patient was placed in [facility] stirrups already had a Quan catheter in place Betadine prep and drape On exam there were no lacerations of the cervix I was able to do a full internal exam of the uterus the section scar was intact there was some clot removed from the top of the fundus as well but the uterine tone improved quite quickly after this. Prior to the OR we were able to remove some clot from the uterus while the patient was upstairs in labor and delivery however it think a remove substantially more clot at this time. Carefully I inspected to ensure as much clot was removed I could find no placenta in the uterus at this time With this improvement a marcy balloon was placed replaced approximately 360 cc of sterile saline into the balloon note the balloon was placed into the uterine cavity. This stage uterine tone was excellent I did give 250 mcg of Hemabate as well this was injected into the lower uterine segment at this stage bleeding was minimal uterine tone felt improved and the procedure was stopped sponge and instrument counts were correct I attest to the content of the Intraoperative Record and any orders documented therein. Any exceptions are noted below. OB Procedure Charges 10439B Bakri 20333 PP Curettage
--- NOTE | 2021-07-24 02:10 | Obstetrical Progress Note ---
Date of Service July 24, 2021 Assessment & Plan Admission and Anticipated Discharge Date Admission Date: July 23, 2021 Subjective Patient is up from the operating room at this stage her bleeding is minimal there is minimal drainage from the marcy of the balloon which should be noted I obtained verbal consent to do the exam under anesthesia and placement of bleeding prior because of the emergent nature of the situation we did not do a formal written consent Results & Data ([facility]) Vital Signs (Past 12 Hours) Vital Signs Temp Pulse Resp BP Pulse Ox 07/24/21 01:00 88 94/52 L 100 07/24/21 00:56 106 H 84/45 L 07/24/21 00:55 116 H 100 07/24/21 00:50 84 98/54 L 100 07/24/21 00:45 108 H 88/52 L 99 07/24/21 00:40 89 93/50 L 100 07/24/21 00:37 76 94/54 L 07/24/21 00:35 82 100 07/24/21 00:30 93 H 101/55 L 87 L 07/24/21 00:29 92 H 91 07/24/21 00:27 93 H 96/46 L 07/24/21 00:25 90 98 07/24/21 00:21 88 91 07/24/21 00:20 87 94 07/24/21 00:18 85 89/50 L 07/24/21 00:16 84 87/48 L 92 07/24/21 00:15 80 96 07/24/21 00:10 89 79/45 L 91 07/23/21 23:46 111 H 96 07/23/21 23:44 104 H 116/68 07/23/21 23:42 106 H 93 07/23/21 23:41 103 H 97 07/23/21 23:36 112 H 98 07/23/21 23:35 106 H 94 07/23/21 23:34 107 H 108/57 L 07/23/21 23:31 106 H 98 07/23/21 23:29 104 H 92 07/23/21 23:26 104 H 98 07/23/21 23:24 95 H 117/56 L 07/23/21 23:21 104 H 95 07/23/21 23:16 96 H 97 07/23/21 23:14 106 H 108/53 L 07/23/21 23:11 111 H 95 07/23/21 23:06 99 H 96 07/23/21 23:04 105 H 107/57 L 07/23/21 23:01 116 H 96 07/23/21 22:56 110 H 98 07/23/21 22:54 101 H 110/70 07/23/21 22:51 112 H 96 07/23/21 22:46 108 H 99 07/23/21 22:45 102 H 131/55 L 07/23/21 22:41 101 H 97 07/23/21 22:36 114 H 97 07/23/21 22:31 119 H 99 07/23/21 22:26 107 H 93 07/23/21 22:24 123 H 126/59 L 07/23/21 22:22 127 H 129/59 L 07/23/21 22:21 127 H 100 07/23/21 22:16 144 H 100 07/23/21 22:11 148 H 100 07/23/21 22:06 153 H 100 07/23/21 22:01 118 H 98 07/23/21 21:56 116 H 98 07/23/21 21:54 120 H 112/57 L 07/23/21 21:51 116 H 98 07/23/21 21:46 121 H 98 07/23/21 21:44 142 H 107/62 07/23/21 21:41 146 H 116/62 100 07/23/21 21:36 148 H 100 07/23/21 21:34 133 H 122/59 L 07/23/21 21:31 152 H 100 07/23/21 21:26 127 H 98 07/23/21 21:22 120 H 121/66 07/23/21 21:21 132 H 97 07/23/21 21:17 139 H 98/54 L 07/23/21 21:16 152 H 99 07/23/21 20:02 96 H 121/57 L 07/23/21 20:01 96 H 99 07/23/21 19:56 93 H 97 07/23/21 19:51 99 H 98 07/23/21 19:47 98 H 124/61 07/23/21 19:46 101 H 99 07/23/21 19:41 100 H 99 07/23/21 19:39 113 H 146/65 H 07/23/21 19:36 128 H 100 07/23/21 19:31 108 H 100 07/23/21 19:26 90 97 07/23/21 19:21 96 H 99 07/23/21 19:18 80 119/75 07/23/21 19:16 91 H 97 07/23/21 19:11 104 H 99 07/23/21 19:06 91 H 99 07/23/21 19:03 90 137/70 07/23/21 19:01 88 99 07/23/21 19:00 99.1 F 18 07/23/21 18:56 105 H 100 07/23/21 18:51 90 100 07/23/21 18:47 105 H 130/61 07/23/21 18:46 92 H 100 07/23/21 18:41 99 H 100 07/23/21 18:36 90 100 07/23/21 18:31 101 H 100 07/23/21 18:26 72 100 07/23/21 18:21 84 100 07/23/21 18:17 82 126/58 L 07/23/21 18:16 80 100 07/23/21 18:11 79 99 07/23/21 18:06 79 99 07/23/21 18:02 72 113/56 L 07/23/21 18:01 76 99 07/23/21 17:56 81 99 07/23/21 17:51 88 99 07/23/21 17:46 81 119/74 97 07/23/21 17:41 82 98 07/23/21 17:36 82 99 07/23/21 17:31 107 H 116/73 99 07/23/21 17:26 87 99 07/23/21 17:21 84 99 07/23/21 17:18 72 117/72 07/23/21 17:16 79 99 07/23/21 17:11 75 99 07/23/21 17:06 84 97 07/23/21 17:03 88 102/62 07/23/21 17:01 89 98 07/23/21 16:56 90 99 07/23/21 16:51 76 99 07/23/21 16:46 70 125/68 100 07/23/21 16:41 70 99 07/23/21 16:36 78 94 07/23/21 16:33 70 121/59 L 07/23/21 16:31 86 99 07/23/21 16:26 80 100 07/23/21 16:22 78 90 07/23/21 16:21 75 98 07/23/21 16:16 71 126/68 99 07/23/21 16:11 71 99 07/23/21 16:06 66 99 07/23/21 16:02 76 122/64 07/23/21 16:01 79 99 07/23/21 15:56 76 100 07/23/21 15:51 79 100 07/23/21 15:47 77 130/72 07/23/21 15:46 78 97 07/23/21 15:42 80 94 07/23/21 15:41 73 96 07/23/21 15:36 82 96 07/23/21 15:32 81 118/70 07/23/21 15:31 97 H 99 07/23/21 15:26 92 H 98 07/23/21 15:21 79 98 07/23/21 15:18 71 110/68 07/23/21 15:16 85 97 07/23/21 15:15 98.6 F 16 07/23/21 15:11 75 98 07/23/21 15:06 97 H 100 07/23/21 15:02 83 124/82 07/23/21 15:01 83 99 07/23/21 14:56 86 98 07/23/21 14:51 79 98 07/23/21 14:46 76 97 07/23/21 14:41 64 99 07/23/21 14:37 98.2 F 18 07/23/21 14:36 90 100 07/23/21 14:33 79 120/59 L 07/23/21 14:31 73 99 07/23/21 14:26 70 99 07/23/21 14:21 69 100 07/23/21 14:17 81 125/72 07/23/21 14:16 84 100 07/23/21 14:11 82 99 PG Care Time/CCT Total # of Minutes Spent Total Time Spent with Patient: Total time spent is greater than 50% in coordination of care (as documented) at patient's floor/unit and/or counseling patient: Coding Level of Care Code None
--- NOTE | 2021-07-24 02:25 | Anesthesiology Progress Note ---
Date of Service July 24, 2021 Anesthesia Post Procedure Vital Signs Vital Signs: Temp Pulse Resp BP Pulse Ox 07/24/21 02:20 112 H 120/59 L 07/24/21 02:17 118 H 100 07/24/21 02:13 131 H 127/64 07/24/21 02:12 129 H 99 07/24/21 02:09 134 H 123/80 07/24/21 02:07 132 H 99 07/24/21 01:00 88 94/52 L 100 07/24/21 00:56 106 H 84/45 L 07/24/21 00:55 116 H 100 07/24/21 00:50 84 98/54 L 100 07/24/21 00:45 108 H 88/52 L 99 07/24/21 00:40 89 93/50 L 100 07/24/21 00:37 76 94/54 L 07/24/21 00:35 82 100 07/24/21 00:30 93 H 101/55 L 87 L 07/24/21 00:29 92 H 91 07/24/21 00:27 93 H 96/46 L 07/24/21 00:25 90 98 07/24/21 00:21 88 91 07/24/21 00:20 87 94 07/24/21 00:18 85 89/50 L 07/24/21 00:16 84 87/48 L 92 07/24/21 00:15 80 96 07/24/21 00:10 89 79/45 L 91 07/23/21 23:46 111 H 96 07/23/21 23:44 104 H 116/68 07/23/21 23:42 106 H 93 07/23/21 23:41 103 H 97 07/23/21 23:36 112 H 98 07/23/21 23:35 106 H 94 07/23/21 23:34 107 H 108/57 L 07/23/21 23:31 106 H 98 07/23/21 23:29 104 H 92 07/23/21 23:26 104 H 98 07/23/21 23:24 95 H 117/56 L 07/23/21 23:21 104 H 95 07/23/21 23:16 96 H 97 07/23/21 23:14 106 H 108/53 L 07/23/21 23:11 111 H 95 07/23/21 23:06 99 H 96 07/23/21 23:04 105 H 107/57 L 07/23/21 23:01 116 H 96 07/23/21 22:56 110 H 98 07/23/21 22:54 101 H 110/70 07/23/21 22:51 112 H 96 07/23/21 22:46 108 H 99 07/23/21 22:45 102 H 131/55 L 07/23/21 22:41 101 H 97 07/23/21 22:36 114 H 97 07/23/21 22:31 119 H 99 07/23/21 22:26 107 H 93 07/23/21 22:24 123 H 126/59 L 07/23/21 22:22 127 H 129/59 L 07/23/21 22:21 127 H 100 07/23/21 22:16 144 H 100 07/23/21 22:11 148 H 100 07/23/21 22:06 153 H 100 07/23/21 22:01 118 H 98 07/23/21 21:56 116 H 98 07/23/21 21:54 120 H 112/57 L 07/23/21 21:51 116 H 98 07/23/21 21:46 121 H 98 07/23/21 21:44 142 H 107/62 07/23/21 21:41 146 H 116/62 100 07/23/21 21:36 148 H 100 07/23/21 21:34 133 H 122/59 L 07/23/21 21:31 152 H 100 07/23/21 21:26 127 H 98 07/23/21 21:22 120 H 121/66 07/23/21 21:21 132 H 97 07/23/21 21:17 139 H 98/54 L 07/23/21 21:16 152 H 99 07/23/21 20:02 96 H 121/57 L 07/23/21 20:01 96 H 99 07/23/21 19:56 93 H 97 07/23/21 19:51 99 H 98 07/23/21 19:47 98 H 124/61 07/23/21 19:46 101 H 99 07/23/21 19:41 100 H 99 07/23/21 19:39 113 H 146/65 H 07/23/21 19:36 128 H 100 07/23/21 19:31 108 H 100 07/23/21 19:26 90 97 07/23/21 19:21 96 H 99 07/23/21 19:18 80 119/75 07/23/21 19:16 91 H 97 07/23/21 19:11 104 H 99 07/23/21 19:06 91 H 99 07/23/21 19:03 90 137/70 07/23/21 19:01 88 99 07/23/21 19:00 37.3 C 18 07/23/21 18:56 105 H 100 07/23/21 18:51 90 100 07/23/21 18:47 105 H 130/61 07/23/21 18:46 92 H 100 07/23/21 18:41 99 H 100 07/23/21 18:36 90 100 07/23/21 18:31 101 H 100 07/23/21 18:26 72 100 07/23/21 18:21 84 100 07/23/21 18:17 82 126/58 L 07/23/21 18:16 80 100 07/23/21 18:11 79 99 07/23/21 18:06 79 99 07/23/21 18:02 72 113/56 L 07/23/21 18:01 76 99 07/23/21 17:56 81 99 07/23/21 17:51 88 99 07/23/21 17:46 81 119/74 97 07/23/21 17:41 82 98 07/23/21 17:36 82 99 07/23/21 17:31 107 H 116/73 99 07/23/21 17:26 87 99 07/23/21 17:21 84 99 07/23/21 17:18 72 117/72 07/23/21 17:16 79 99 07/23/21 17:11 75 99 07/23/21 17:06 84 97 07/23/21 17:03 88 102/62 07/23/21 17:01 89 98 07/23/21 16:56 90 99 07/23/21 16:51 76 99 07/23/21 16:46 70 125/68 100 07/23/21 16:41 70 99 07/23/21 16:36 78 94 07/23/21 16:33 70 121/59 L 07/23/21 16:31 86 99 07/23/21 16:26 80 100 07/23/21 16:22 78 90 07/23/21 16:21 75 98 07/23/21 16:16 71 126/68 99 07/23/21 16:11 71 99 07/23/21 16:06 66 99 07/23/21 16:02 76 122/64 07/23/21 16:01 79 99 07/23/21 15:56 76 100 07/23/21 15:51 79 100 07/23/21 15:47 77 130/72 07/23/21 15:46 78 97 07/23/21 15:42 80 94 07/23/21 15:41 73 96 07/23/21 15:36 82 96 07/23/21 15:32 81 118/70 07/23/21 15:31 97 H 99 07/23/21 15:26 92 H 98 07/23/21 15:21 79 98 07/23/21 15:18 71 110/68 07/23/21 15:16 85 97 07/23/21 15:15 37.0 C 16 07/23/21 15:11 75 98 07/23/21 15:06 97 H 100 07/23/21 15:02 83 124/82 07/23/21 15:01 83 99 07/23/21 14:56 86 98 07/23/21 14:51 79 98 07/23/21 14:46 76 97 07/23/21 14:41 64 99 07/23/21 14:37 36.8 C 18 07/23/21 14:36 90 100 07/23/21 14:33 79 120/59 L 07/23/21 14:31 73 99 07/23/21 14:26 70 99 07/23/21 14:21 69 100 07/23/21 14:17 81 125/72 07/23/21 14:16 84 100 07/23/21 14:11 82 99 07/23/21 14:06 92 H 100 07/23/21 14:02 72 123/76 07/23/21 14:01 86 99 07/23/21 13:56 79 99 07/23/21 13:51 80 99 07/23/21 13:48 68 127/67 07/23/21 13:46 67 99 07/23/21 13:41 84 98 07/23/21 13:36 71 100 07/23/21 13:32 71 111/57 L 07/23/21 13:31 79 96 07/23/21 13:26 89 99 07/23/21 13:21 88 99 07/23/21 13:18 88 117/76 07/23/21 13:16 81 100 07/23/21 13:14 98 H 113/69 07/23/21 13:12 77 124/64 07/23/21 13:11 87 98 07/23/21 13:10 82 125/70 07/23/21 13:08 81 126/77 07/23/21 13:06 79 118/66 97 07/23/21 13:05 18 07/23/21 13:04 88 119/66 07/23/21 13:02 87 115/72 07/23/21 13:01 90 99 07/23/21 13:00 86 122/75 07/23/21 12:58 84 127/77 07/23/21 12:56 93 H 126/82 100 07/23/21 12:54 88 137/78 07/23/21 12:51 86 100 07/23/21 12:46 85 100 07/23/21 12:29 91 H 100 07/23/21 12:04 73 124/63 07/23/21 12:01 36.9 C 18 07/23/21 11:26 72 120/71 07/23/21 11:25 36.6 C 18 07/23/21 11:00 18 07/23/21 10:35 78 116/74 07/23/21 09:30 90 121/65 07/23/21 07:45 36.8 C 109 H 18 123/74 Pain Intensity Bilateral Abdomen: Pain Intensity: 0 Transfer of Care Handoff Completed per policy Notes Mental Status: alert / awake / arousable Patient Amnestic to Procedure: Yes Nausea / Vomiting: adequately controlled Pain: adequately controlled Airway Patency, RR, SpO2: stable & adequate BP & HR: stable & adequate and see Notes below Hydration State: stable & adequate Anesthetic Complications: no major complications apparent and Pt Satisfied with anesthetic care Notes: The patient was found to have hemorrhage with hgb down to 5.2. She was emergently taken to the OR where a Refugio balloon was placed under general anesthesia. The patient was transfused one unit of PRBC in the OR. A second unit of PRBC was started when she reached recovery. She is now awake and comfortable. She remains tachycardic with HR in the 110s but her other vitals are stable. She was pale and diaphoretic preoperatively, but looks better now. Dr. Ortiz will have the medicine team manage her fluids/blood requirements postoperatively.
[2021-07-24] MEDS: OXYTOCIN 20 UNITS in LACTATED RINGER'S 1,000 ML IV SCH (02:40)
--- NOTE | 2021-07-24 03:46 | Hospitalist Consultation ---
Date of Consultation July 24, 2021 Assessment & Plan (1) Acute blood loss anemia: Christal is a 20 yo female is POD 1 from a who experienced a post- operative hemorrhage - now status post clot evacuation and barkari balloon placement. Hospitalist consulted for management of acute blood loss anemia. - Hgb 5.6 after clot evacuation --> down to 5.2 after 1 unit of pRBC - patient initially tachycardic and normotensive --> HR subsequently normalized. hemodynamically stable. - agree with additional 3 units of pRBCs (for a total of 4) - repeat H+H 1 hour after final unit transfuses - recommend transfusing for Hgb < 7 or < 8 with ongoing bleeding - 4 units does not qualify as a massive transfusion, therefore no additional blood products (ie platelets or cryo) are indicated - check vitals q1h to closely monitor hemodynamic status - hospital team to follow Supervising Physician Co-Signing Physician Notes Patient seen and examined at time of consult, chart reviewed, case discussed with Dr. Castillo and I agree with her assessment and plan as above. In brief, patient is a 20yo female POD #1 from with post-operative hemorrhage s/p clot evacuation and placement of barkari balloon. Patient's Hgb dropped significantly following hemorrhage. She has been transfused with 2u PRBCs thus far with plan to transfuse additional units x 2. She is afebrile, HD stable, pain is well controlled HEENT - NC/AT, PERRL, MMM Heart - +S1/S2, regular, no m/r/g Lungs - CTA Abd - +BS, soft, minimal output from marcy balloon device. NO vaginal bleeding reported by nursing Ext - warm, well perfused, no clubbing/cyanosis or edema Labs and images reviewed Assessment/Plan - 20yo female s/p complicated by post-operative hemorrhage s/p clot evacuation and marcy device placement. Significant drop in Hgb, now being transfused. She remains hemodynamically stable at present - was tachycardic now improved. Bleeding is minimal at this time. She has PIV 18G x [address] -Recommend completion of transfusion as ordered by primary team -Monitor CBC -Remainder of plan as above History of Present Illness Attending Physician: Cherise Drummond MD History of Present Illness Christal is a 20 yo F with a PMHx of hepatitis C who was is admitted to the labor and delivery service. She had a section on 07/23/21 after a failed induction of labor. The was without complications - however she sustained a post-operative hemorrhage. The on-call OBGYN provider, Dr. Ortiz, took her back to the OR early this morning to evacuate clot from the uterus and for placement of a marcy balloon. On admission, her hemoglobin was 9.9. A post-operative check returned at 5.6. After 1 unit of pRBCs transfused, Hgb dropped further to 5.2. Platelets and coags WNL. Medicine team was consulted for fluid and blood product management. Christal denied any chest pain or shortness of breath. Overall her abdominal pain was well controlled. She denies any previous instances of a propensity to bleed heavy. She denies any known family history of blood clotting disorders. Allergies Allergy/AdvReac Type Severity Reaction Status Date / Time amoxicillin Allergy Mild rash Verified 07/21/21 11:25 Home Medications Medication Instructions Recorded Confirmed Type venlafaxine 37.5 mg 37.5 mg PO DAILY 03/30/21 07/23/21 History capsule,extended release 24 hr (Effexor XR) [id number] 1 mg 1 tab PO DAILY 07/22/21 07/23/21 History tablet Patient History Medical History Cyclothymic disorder Gestational diabetes mellitus (GDM) affecting , antepartum Hepatitis C History of drug dependence Surgical History H/O oral surgery Family History Mother Hypertension Denies family history of Ovarian cancer Prostate cancer Breast cancer Colorectal cancer Social History Smoking Status: Never smoker Second Hand Exposure: No; Hx Alcohol Use: No Hx Substance Use: No Preferred Language: Macedonian Communication Ability: Effective Visual Impairment: No Limitations Hearing Ability: Normal Sustainability Project Coordinator Required: No Beliefs That Will Affect Care: None marital status: Single marital status details: Gokul Antonino (21) [phone] Current Living Situation: Significant Other Current Living Situation Comment: Gokul Muñiz current occupational status: employed 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 Other Information That Helps Us Care for You: No Feels Safe at Home: Yes Safety Concerns: Feels Safe At This Time Assistive Devices: None Review of Systems Review of Systems: All systems reviewed & are unremarkable except as noted in HPI & below Physical Exam Constitutional: WD/WN, vitals as above cooperative; no acute distress Eyes: + anicteric sclerae ENMT: external ear and nose normal, oropharynx normal Neck: trachea midline Respiratory: normal respiratory effort, lungs clear to auscultation no cough Cardiovascular: RRR, no murmur, no edema Heart Sounds: normal S1 and normal S2 Extremities: no pedal edema Gastrointestinal (Abdomen): Inspection/Auscultation: normal bowel sounds Percussion/Palpation: + abdomen tender and abdomen soft Musculoskeletal: Head/Neck/Chest: normocephalic and head atraumatic Skin: no rashes, warm and dry Neurologic: moves all extremities Psychiatric: A+Ox3, euthymic affect Genitourinary: + manley cath in place + marcy balloon in place Results & Data Results & Data ([facility]) Vital Signs (Past 12 Hours) Vital Signs Temp Pulse Resp BP Pulse Ox 07/24/21 03:37 77 98 07/24/21 03:32 94 H 98 07/24/21 03:27 86 96 07/24/21 03:22 93 H 100 07/24/21 03:17 102 H 99 07/24/21 03:12 92 H 99 07/24/21 03:10 86 112/57 L 07/24/21 03:07 89 98 07/24/21 03:02 86 98 07/24/21 03:01 100 H 92 07/24/21 03:00 96 H 146/62 H 07/24/21 02:57 90 99 07/24/21 02:52 106 H 97 07/24/21 02:50 102 H 137/66 07/24/21 02:47 98 H 98 07/24/21 02:42 93 H 99 07/24/21 02:40 100 H 108/67 07/24/21 02:37 94 H 98 07/24/21 02:32 106 H 99 07/24/21 02:30 37.1 C 108 H 18 117/62 07/24/21 02:27 105 H 100 07/24/21 02:22 113 H 100 07/24/21 02:20 112 H 120/59 L 07/24/21 02:17 118 H 100 07/24/21 02:13 131 H 127/64 07/24/21 02:12 129 H 99 07/24/21 02:09 134 H 123/80 07/24/21 02:07 132 H 99 07/24/21 01:00 88 94/52 L 100 07/24/21 00:56 106 H 84/45 L 07/24/21 00:55 116 H 100 07/24/21 00:50 84 98/54 L 100 07/24/21 00:45 108 H 88/52 L 99 07/24/21 00:40 89 93/50 L 100 07/24/21 00:37 76 94/54 L 07/24/21 00:35 82 100 07/24/21 00:30 93 H 101/55 L 87 L 07/24/21 00:29 92 H 91 07/24/21 00:27 93 H 96/46 L 07/24/21 00:25 90 98 07/24/21 00:21 88 91 07/24/21 00:20 87 94 07/24/21 00:18 85 89/50 L 07/24/21 00:16 84 87/48 L 92 07/24/21 00:15 80 96 07/24/21 00:10 89 79/45 L 91 07/23/21 23:46 111 H 96 07/23/21 23:44 104 H 116/68 07/23/21 23:42 106 H 93 07/23/21 23:41 103 H 97 07/23/21 23:36 112 H 98 07/23/21 23:35 106 H 94 07/23/21 23:34 107 H 108/57 L 07/23/21 23:31 106 H 98 07/23/21 23:29 104 H 92 07/23/21 23:26 104 H 98 07/23/21 23:24 95 H 117/56 L 07/23/21 23:21 104 H 95 07/23/21 23:16 96 H 97 07/23/21 23:14 106 H 108/53 L 07/23/21 23:11 111 H 95 07/23/21 23:06 99 H 96 07/23/21 23:04 105 H 107/57 L 07/23/21 23:01 116 H 96 07/23/21 22:56 110 H 98 07/23/21 22:54 101 H 110/70 07/23/21 22:51 112 H 96 07/23/21 22:46 108 H 99 07/23/21 22:45 102 H 131/55 L 07/23/21 22:41 101 H 97 07/23/21 22:36 114 H 97 07/23/21 22:31 119 H 99 07/23/21 22:26 107 H 93 07/23/21 22:24 123 H 126/59 L 07/23/21 22:22 127 H 129/59 L 07/23/21 22:21 127 H 100 07/23/21 22:16 144 H 100 07/23/21 22:11 148 H 100 07/23/21 22:06 153 H 100 07/23/21 22:01 118 H 98 07/23/21 21:56 116 H 98 07/23/21 21:54 120 H 112/57 L 07/23/21 21:51 116 H 98 07/23/21 21:46 121 H 98 07/23/21 21:44 142 H 107/62 07/23/21 21:41 146 H 116/62 100 07/23/21 21:36 148 H 100 07/23/21 21:34 133 H 122/59 L 07/23/21 21:31 152 H 100 07/23/21 21:26 127 H 98 07/23/21 21:22 120 H 121/66 07/23/21 21:21 132 H 97 07/23/21 21:17 139 H 98/54 L 07/23/21 21:16 152 H 99 07/23/21 20:02 96 H 121/57 L 07/23/21 20:01 96 H 99 07/23/21 19:56 93 H 97 07/23/21 19:51 99 H 98 07/23/21 19:47 98 H 124/61 07/23/21 19:46 101 H 99 07/23/21 19:41 100 H 99 07/23/21 19:39 113 H 146/65 H 07/23/21 19:36 128 H 100 07/23/21 19:31 108 H 100 07/23/21 19:26 90 97 07/23/21 19:21 96 H 99 07/23/21 19:18 80 119/75 07/23/21 19:16 91 H 97 07/23/21 19:11 104 H 99 07/23/21 19:06 91 H 99 07/23/21 19:03 90 137/70 07/23/21 19:01 88 99 07/23/21 19:00 37.3 C 18 07/23/21 18:56 105 H 100 07/23/21 18:51 90 100 07/23/21 18:47 105 H 130/61 07/23/21 18:46 92 H 100 07/23/21 18:41 99 H 100 07/23/21 18:36 90 100 07/23/21 18:31 101 H 100 07/23/21 18:26 72 100 07/23/21 18:21 84 100 07/23/21 18:17 82 126/58 L 07/23/21 18:16 80 100 07/23/21 18:11 79 99 07/23/21 18:06 79 99 07/23/21 18:02 72 113/56 L 07/23/21 18:01 76 99 07/23/21 17:56 81 99 07/23/21 17:51 88 99 07/23/21 17:46 81 119/74 97 07/23/21 17:41 82 98 07/23/21 17:36 82 99 07/23/21 17:31 107 H 116/73 99 07/23/21 17:26 87 99 07/23/21 17:21 84 99 07/23/21 17:18 72 117/72 07/23/21 17:16 79 99 07/23/21 17:11 75 99 07/23/21 17:06 84 97 07/23/21 17:03 88 102/62 07/23/21 17:01 89 98 07/23/21 16:56 90 99 07/23/21 16:51 76 99 07/23/21 16:46 70 125/68 100 07/23/21 16:41 70 99 07/23/21 16:36 78 94 07/23/21 16:33 70 121/59 L 07/23/21 16:31 86 99 12/03/21 16:26 80 100 07/23/21 16:22 78 90 07/23/21 16:21 75 98 07/23/21 16:16 71 126/68 99 07/23/21 16:11 71 99 07/23/21 16:06 66 99 07/23/21 16:02 76 122/64 07/23/21 16:01 79 99 07/23/21 15:56 76 100 07/23/21 15:51 79 100 07/23/21 15:47 77 130/72 07/23/21 15:46 78 97 Resident Activity Tracking Resident Involvement: Resident Care Provided Care Provided: Adult Hospital Medicine
--- NOTE | 2021-07-24 07:10 | Obstetrical Progress Note ---
Date of Service <April Salinas MD - Last Filed: 07/24/21 07:29> July 24, 2021 Assessment & Plan <April Salinas MD - Last Filed: 07/24/21 07:29> (1) delivery delivered: 20 yo with PMH of Hep C, depression/anxiety, substance use disorder, complicated by GDM, now POD1 from LTCS at 40wk6d for failure to progress 1) delivery -Continue routine care -Vitals reviewed- HDS, afebrile -Blood type A-, GBS+, Rubella immune -Advance diet- may trial soft foods for breakfast -Pain control with ibuprofen, oxycodone PRN -Encourage -F/u in 6 weeks with OB 2) hemorrhage -S/p clot evacuation and bakri balloon tamponade 07/24 -Receiving 4 total units pRBCs, recheck H+H after completion -Hemodynamically stable, uterus firm and no additional bleeding sources identified, low concern for internal bleeding on exam -Hgb goal > 8 -Vitals q1h -Hospitalist team following <Alejandra Ortiz MD, FACOG - Last Filed: 07/24/21 07:48> (1) delivery delivered: Subjective <April Salinas MD - Last Filed: 07/24/21 07:29> Ambulation: limited ambulation Voiding: manley catheter in place Passing Gas:: Yes Diet Tolerance:: clear liquids (water) Lochia:: Small Feeding Type:: breast feeding (also bottle feeding) Current Pain Level(1-10): 0 Pt doing well overall, no acute complaints or distress. Pain well controlled with medication. Feels hungry, requesting food. Denies lightheadedness, SOB. Balloon tamponade in place. Review of Systems Denies fever/chills. Denies dyspnea, cough. Denies chest pain. Denies breast pain or discharge. Denies dysuria. Denies headache. Denies back pain. Physical Exam <April Salinas MD - Last Filed: 07/24/21 07:29> General: Alert, oriented, no acute distress HEENT: no pallor, anicteric sclerae Cardiac: Regular rate and rhythm, normal S1, S2. No murmurs appreciated. Respiratory: Clear to auscultation b/l with good air flow entry, symmetric chest rise and fall. No wheezes or crackles. No increased work of breathing or accessory muscle use Abdomen: Soft, nontender, nondistended. Fundus firm and palpable at 1 cm below umbilicus. Surgical incision clean, dry and intact without erythema, warmth or drainage. Bowel sounds appreciated. No guarding or rebound. Skin: No rashes or lesions Extremities: Warm, dry, well-perfused with capillary refill <2s b/l. No lower extremity edema, erythema or swelling. Negative Era's sign b/l. Results & Data ([facility]) <April Salinas MD - Last Filed: 07/24/21 07:29> Vital Signs (Past 12 Hours) Vital Signs Temp Pulse Resp BP Pulse Ox 07/24/21 06:57 71 98 07/24/21 06:52 97 H 100 07/24/21 06:49 83 173/77 H 07/24/21 06:47 71 100 07/24/21 06:42 90 98 07/24/21 06:37 72 98 07/24/21 06:34 37.2 C 77 16 117/65 07/24/21 06:32 82 97 07/24/21 06:27 73 97 07/24/21 06:22 78 98 07/24/21 06:18 68 120/60 91 07/24/21 06:17 75 96 07/24/21 06:16 36.9 C 77 18 120/60 92 07/24/21 06:12 68 98 07/24/21 06:11 68 128/69 07/24/21 06:07 68 97 07/24/21 06:02 67 97 07/24/21 05:57 69 98 07/24/21 05:56 67 120/66 07/24/21 05:52 68 98 07/24/21 05:47 68 98 07/24/21 05:42 80 99 07/24/21 05:41 67 113/58 L 07/24/21 05:37 69 100 07/24/21 05:32 70 98 07/24/21 05:27 78 99 07/24/21 05:26 67 112/56 L 07/24/21 05:22 68 98 07/24/21 05:17 73 97 07/24/21 05:16 76 90 07/24/21 05:12 78 95 07/24/21 05:11 82 127/62 07/24/21 05:07 82 97 07/24/21 05:02 82 98 07/24/21 04:57 66 98 07/24/21 04:56 65 119/60 07/24/21 04:52 67 97 07/24/21 04:50 37.0 C 07/24/21 04:47 66 98 07/24/21 04:42 73 98 07/24/21 04:41 63 114/59 L 07/24/21 04:37 64 97 07/24/21 04:32 66 98 07/24/21 04:27 63 98 07/24/21 04:26 61 106/55 L 07/24/21 04:22 72 98 07/24/21 04:21 115 H 131/77 07/24/21 04:20 37.3 C 07/24/21 04:17 74 95 07/24/21 04:16 67 103/55 L 07/24/21 04:12 73 98 07/24/21 04:11 76 16 99/52 L 98 07/24/21 04:07 80 98 07/24/21 04:06 71 97/52 L 07/24/21 04:05 36.8 C 07/24/21 04:02 91 H 98 07/24/21 04:01 90 104/55 L 07/24/21 03:58 82 105/56 L 07/24/21 03:57 75 98 07/24/21 03:56 77 101/56 L 07/24/21 03:52 86 97 07/24/21 03:50 37.0 C 73 18 95/53 L 07/24/21 03:49 73 95/53 L 07/24/21 03:48 37.0 C 80 18 95/53 L 97 07/24/21 03:47 79 99 07/24/21 03:44 85 108/59 L 07/24/21 03:42 82 98 07/24/21 03:37 77 98 07/24/21 03:35 37.3 C 85 18 108/59 L 98 07/24/21 03:32 94 H 98 07/24/21 03:27 86 96 07/24/21 03:22 93 H 100 07/24/21 03:17 102 H 99 07/24/21 03:12 92 H 99 07/24/21 03:10 86 112/57 L 07/24/21 03:07 89 98 07/24/21 03:02 86 98 07/24/21 03:01 100 H 92 07/24/21 03:00 96 H 146/62 H 07/24/21 02:57 90 99 07/24/21 02:52 106 H 97 07/24/21 02:50 102 H 137/66 07/24/21 02:47 98 H 98 07/24/21 02:42 93 H 99 07/24/21 02:40 100 H 108/67 07/24/21 02:37 94 H 98 07/24/21 02:32 106 H 99 07/24/21 02:30 37.1 C 108 H 18 117/62 07/24/21 02:27 105 H 100 07/24/21 02:22 113 H 100 07/24/21 02:20 112 H 120/59 L 07/24/21 02:17 118 H 100 07/24/21 02:13 131 H 127/64 07/24/21 02:12 129 H 99 07/24/21 02:09 134 H 123/80 07/24/21 02:07 132 H 99 07/24/21 01:00 88 94/52 L 100 07/24/21 00:56 106 H 84/45 L 07/24/21 00:55 116 H 100 07/24/21 00:50 84 98/54 L 100 07/24/21 00:45 108 H 88/52 L 99 07/24/21 00:40 89 93/50 L 100 07/24/21 00:37 76 94/54 L 07/24/21 00:35 82 100 07/24/21 00:30 93 H 101/55 L 87 L 07/24/21 00:29 92 H 91 07/24/21 00:27 93 H 96/46 L 07/24/21 00:25 90 98 07/24/21 00:21 88 91 07/24/21 00:20 87 94 07/24/21 00:18 85 89/50 L 07/24/21 00:16 84 87/48 L 92 07/24/21 00:15 80 96 07/24/21 00:10 89 79/45 L 91 07/23/21 23:46 111 H 96 07/23/21 23:44 104 H 116/68 07/23/21 23:42 106 H 93 07/23/21 23:41 103 H 97 07/23/21 23:36 112 H 98 07/23/21 23:35 106 H 94 07/23/21 23:34 107 H 108/57 L 07/23/21 23:31 106 H 98 07/23/21 23:29 104 H 92 07/23/21 23:26 104 H 98 07/23/21 23:24 95 H 117/56 L 07/23/21 23:21 104 H 95 07/23/21 23:16 96 H 97 07/23/21 23:14 106 H 108/53 L 07/23/21 23:11 111 H 95 07/23/21 23:06 99 H 96 07/23/21 23:04 105 H 107/57 L 07/23/21 23:01 116 H 96 07/23/21 22:56 110 H 98 07/23/21 22:54 101 H 110/70 07/23/21 22:51 112 H 96 07/23/21 22:46 108 H 99 07/23/21 22:45 102 H 131/55 L 07/23/21 22:41 101 H 97 07/23/21 22:36 114 H 97 07/23/21 22:31 119 H 99 07/23/21 22:26 107 H 93 07/23/21 22:24 123 H 126/59 L 07/23/21 22:22 127 H 129/59 L 07/23/21 22:21 127 H 100 07/23/21 22:16 144 H 100 07/23/21 22:11 148 H 100 07/23/21 22:06 153 H 100 07/23/21 22:01 118 H 98 07/23/21 21:56 116 H 98 07/23/21 21:54 120 H 112/57 L 07/23/21 21:51 116 H 98 07/23/21 21:46 121 H 98 07/23/21 21:44 142 H 107/62 07/23/21 21:41 146 H 116/62 100 07/23/21 21:36 148 H 100 07/23/21 21:34 133 H 122/59 L 07/23/21 21:31 152 H 100 07/23/21 21:26 127 H 98 07/23/21 21:22 120 H 121/66 07/23/21 21:21 132 H 97 07/23/21 21:17 139 H 98/54 L 07/23/21 21:16 152 H 99 07/23/21 20:02 96 H 121/57 L 07/23/21 20:01 96 H 99 07/23/21 19:56 93 H 97 07/23/21 19:51 99 H 98 07/23/21 19:47 98 H 124/61 07/23/21 19:46 101 H 99 07/23/21 19:41 100 H 99 07/23/21 19:39 113 H 146/65 H 07/23/21 19:36 128 H 100 07/23/21 19:31 108 H 100 07/23/21 19:26 90 97 07/23/21 19:21 96 H 99 07/23/21 19:18 80 119/75 07/23/21 19:16 91 H 97 07/23/21 19:11 104 H 99 07/23/21 19:06 91 H 99 07/23/21 19:03 90 137/70 07/23/21 19:01 88 99 <Alejandra Ortiz MD, FACOG - Last Filed: 07/24/21 07:48> Co-Signing Physician Notes Resident Physician Supervision Note: I was present with Dr. Dunlap during the history and exam. I discussed the case with the resident and agree with the findings and plan as documented in the note. Any exceptions or clarifications are listed here: [None] Documented By: Alejandra Ortiz MD, FACOG Resident Activity Tracking <April Salinas MD - Last Filed: 07/24/21 07:29> Resident Involvement: Resident Care Provided Care Provided: OB Delivery
--- NOTE | 2021-07-24 08:02 | Obstetrical Progress Note ---
Date of Service July 24, 2021 Patient did well overnight she has the back reballoon in place there is been minimal drainage perhaps 100 mL from the Bactrim she feels much better pressures are better I did review and sign out the case with Dr. Drummond the doctor coming telephone repairer for the day we did discuss adding some antibiotic coverage for the time leaving the [facility] region for 24 hours carefully observing we both feel the patient could have regular diet as well Carefully reviewed what we did last night online I believe this hemorrhage is primarily due to atony we will check her labs after transfusion as well and follow with the hospitalist Assessment & Plan Admission and Anticipated Discharge Date Admission Date: July 23, 2021 Results & Data ([facility]) Vital Signs (Past 12 Hours) Vital Signs Temp Pulse Resp BP Pulse Ox 07/24/21 07:57 89 99 07/24/21 07:52 96 H 97 07/24/21 07:49 95 H 143/66 H 07/24/21 07:47 93 H 97 07/24/21 07:42 89 98 07/24/21 07:37 83 98 07/24/21 07:34 84 128/59 L 07/24/21 07:32 82 98 07/24/21 07:27 85 98 07/24/21 07:22 79 100 07/24/21 07:21 81 124/59 L 07/24/21 07:19 98.6 F 81 20 124/59 L 98 07/24/21 07:17 97 H 100 07/24/21 07:16 98.6 F 20 07/24/21 07:12 89 100 07/24/21 07:07 68 97 07/24/21 07:04 67 114/56 L 07/24/21 07:02 69 97 07/24/21 06:57 71 98 07/24/21 06:52 97 H 100 07/24/21 06:49 98.6 F 83 173/77 H 07/24/21 06:47 71 100 07/24/21 06:42 90 98 07/24/21 06:37 72 98 07/24/21 06:34 99.0 F 77 16 117/65 07/24/21 06:32 82 97 07/24/21 06:27 73 97 07/24/21 06:22 78 98 07/24/21 06:18 68 120/60 91 07/24/21 06:17 75 96 07/24/21 06:16 98.4 F 77 18 120/60 92 07/24/21 06:12 68 98 07/24/21 06:11 68 128/69 07/24/21 06:07 68 97 07/24/21 06:02 67 97 07/24/21 05:57 69 98 07/24/21 05:56 67 120/66 07/24/21 05:52 68 98 07/24/21 05:47 68 98 07/24/21 05:42 80 99 07/24/21 05:41 67 113/58 L 07/24/21 05:37 69 100 07/24/21 05:32 70 98 07/24/21 05:27 78 99 07/24/21 05:26 67 112/56 L 07/24/21 05:22 68 98 07/24/21 05:17 73 97 07/24/21 05:16 76 90 07/24/21 05:12 78 95 07/24/21 05:11 82 127/62 07/24/21 05:07 82 97 07/24/21 05:02 82 98 07/24/21 04:57 66 98 07/24/21 04:56 65 119/60 07/24/21 04:52 67 97 07/24/21 04:50 98.6 F 07/24/21 04:47 66 98 07/24/21 04:42 73 98 07/24/21 04:41 63 114/59 L 07/24/21 04:37 64 97 07/24/21 04:32 66 98 07/24/21 04:27 63 98 07/24/21 04:26 61 106/55 L 07/24/21 04:22 72 98 07/24/21 04:21 115 H 131/77 07/24/21 04:20 99.1 F 07/24/21 04:17 74 95 07/24/21 04:16 67 103/55 L 07/24/21 04:12 73 98 07/24/21 04:11 76 16 99/52 L 98 07/24/21 04:07 80 98 07/24/21 04:06 71 97/52 L 07/24/21 04:05 98.2 F 07/24/21 04:02 91 H 98 07/24/21 04:01 90 104/55 L 07/24/21 03:58 82 105/56 L 07/24/21 03:57 75 98 07/24/21 03:56 77 101/56 L 07/24/21 03:52 86 97 07/24/21 03:50 98.6 F 73 18 95/53 L 07/24/21 03:49 73 95/53 L 07/24/21 03:48 98.6 F 80 18 95/53 L 97 07/24/21 03:47 79 99 07/24/21 03:44 85 108/59 L 07/24/21 03:42 82 98 07/24/21 03:37 77 98 07/24/21 03:35 99.1 F 85 18 108/59 L 98 07/24/21 03:32 94 H 98 07/24/21 03:27 86 96 07/24/21 03:22 93 H 100 07/24/21 03:17 102 H 99 07/24/21 03:12 92 H 99 07/24/21 03:10 86 112/57 L 07/24/21 03:07 89 98 07/24/21 03:02 86 98 07/24/21 03:01 100 H 92 07/24/21 03:00 96 H 146/62 H 07/24/21 02:57 90 99 07/24/21 02:52 106 H 97 07/24/21 02:50 102 H 137/66 07/24/21 02:47 98 H 98 07/24/21 02:42 93 H 99 07/24/21 02:40 100 H 108/67 07/24/21 02:37 94 H 98 07/24/21 02:32 106 H 99 07/24/21 02:30 98.8 F 108 H 18 117/62 07/24/21 02:27 105 H 100 07/24/21 02:22 113 H 100 07/24/21 02:20 112 H 120/59 L 07/24/21 02:17 118 H 100 07/24/21 02:13 131 H 127/64 07/24/21 02:12 129 H 99 07/24/21 02:09 134 H 123/80 07/24/21 02:07 132 H 99 07/24/21 01:00 88 94/52 L 100 07/24/21 00:56 106 H 84/45 L 07/24/21 00:55 116 H 100 07/24/21 00:50 84 98/54 L 100 07/24/21 00:45 108 H 88/52 L 99 07/24/21 00:40 89 93/50 L 100 07/24/21 00:37 76 94/54 L 07/24/21 00:35 82 100 07/24/21 00:30 93 H 101/55 L 87 L 07/24/21 00:29 92 H 91 07/24/21 00:27 93 H 96/46 L 07/24/21 00:25 90 98 07/24/21 00:21 88 91 07/24/21 00:20 87 94 07/24/21 00:18 85 89/50 L 07/24/21 00:16 84 87/48 L 92 07/24/21 00:15 80 96 07/24/21 00:10 89 79/45 L 91 07/23/21 23:46 111 H 96 07/23/21 23:44 104 H 116/68 07/23/21 23:42 106 H 93 07/23/21 23:41 103 H 97 07/23/21 23:36 112 H 98 07/23/21 23:35 106 H 94 07/23/21 23:34 107 H 108/57 L 07/23/21 23:31 106 H 98 07/23/21 23:29 104 H 92 07/23/21 23:26 104 H 98 07/23/21 23:24 95 H 117/56 L 07/23/21 23:21 104 H 95 07/23/21 23:16 96 H 97 07/23/21 23:14 106 H 108/53 L 07/23/21 23:11 111 H 95 07/23/21 23:06 99 H 96 07/23/21 23:04 105 H 107/57 L 07/23/21 23:01 116 H 96 07/23/21 22:56 110 H 98 07/23/21 22:54 101 H 110/70 07/23/21 22:51 112 H 96 07/23/21 22:46 108 H 99 07/23/21 22:45 102 H 131/55 L 07/23/21 22:41 101 H 97 07/23/21 22:36 114 H 97 07/23/21 22:31 119 H 99 07/23/21 22:26 107 H 93 07/23/21 22:24 123 H 126/59 L 07/23/21 22:22 127 H 129/59 L 07/23/21 22:21 127 H 100 07/23/21 22:16 144 H 100 07/23/21 22:11 148 H 100 07/23/21 22:06 153 H 100 07/23/21 22:01 118 H 98 07/23/21 21:56 116 H 98 07/23/21 21:54 120 H 112/57 L 07/23/21 21:51 116 H 98 07/23/21 21:46 121 H 98 07/23/21 21:44 142 H 107/62 07/23/21 21:41 146 H 116/62 100 07/23/21 21:36 148 H 100 07/23/21 21:34 133 H 122/59 L 07/23/21 21:31 152 H 100 07/23/21 21:26 127 H 98 07/23/21 21:22 120 H 121/66 07/23/21 21:21 132 H 97 07/23/21 21:17 139 H 98/54 L 07/23/21 21:16 152 H 99 07/23/21 20:02 96 H 121/57 L 07/23/21 20:01 96 H 99 PG Care Time/CCT Total # of Minutes Spent Total Time Spent with Patient: Total time spent is greater than 50% in coordination of care (as documented) at patient's floor/unit and/or counseling patient: Coding Level of Care Code None
[2021-07-24] MEDS ORDERED: VENLAFAXINE HCL XR 37.5 MG CAPXR PO SCH (09:00)
[2021-07-24] MEDS ORDERED: NON-FORMULARY MEDICATION (Prenatal Multivit-Min-Fe-Fa 1 mg Tablet) PO SCH (09:00)
[2021-07-24] MEDS: PRENATAL VITAMIN 1 TAB PO SCH (09:37)
[2021-07-24] MEDS: AMPICILLIN/SULBACTAM SOD 1,500 MG in 0.9 % SODIUM CHLORIDE 100 ML IV SCH ×3 (09:37→20:33)
[2021-07-24] MEDS: SIMETHICONE 80 MG CHEW PO SCH ×4 (09:37→20:34)
[2021-07-24] MEDS: FERROUS SULFATE 325 MG TAB PO SCH (09:38)
[2021-07-24] MEDS: DOCUSATE SODIUM 100 MG CAP PO SCH ×2 (09:38→20:34)
--- NOTE | 2021-07-24 10:07 | Anesthesiology Progress Note ---
Date of Service July 24, 2021 Anesthesia Post Procedure Vital Signs Vital Signs: Temp Pulse Resp BP Pulse Ox 07/24/21 10:04 96 H 128/67 07/24/21 10:02 100 H 96 07/24/21 09:57 103 H 96 07/24/21 09:52 88 97 07/24/21 09:49 90 122/56 L 07/24/21 09:47 88 97 07/24/21 09:42 98 H 97 07/24/21 09:37 99 H 97 07/24/21 09:34 92 H 117/60 07/24/21 09:32 98 H 96 07/24/21 09:27 89 96 07/24/21 09:22 93 H 96 07/24/21 09:19 86 116/56 L 07/24/21 09:17 97 H 96 07/24/21 09:12 107 H 96 07/24/21 09:07 102 H 96 07/24/21 09:04 100 H 119/70 07/24/21 09:02 95 H 97 07/24/21 08:57 100 H 97 07/24/21 08:52 102 H 98 07/24/21 08:49 82 124/58 L 07/24/21 08:47 88 98 07/24/21 08:42 95 H 98 07/24/21 08:37 92 H 98 07/24/21 08:32 100 H 96 07/24/21 08:27 89 98 07/24/21 08:22 100 H 99 07/24/21 08:19 81 111/56 L 07/24/21 08:17 87 96 07/24/21 08:12 91 H 97 07/24/21 08:07 90 96 07/24/21 08:04 88 125/60 07/24/21 08:02 89 131/60 96 07/24/21 08:00 36.6 C 94 H 18 131/60 97 07/24/21 07:57 89 99 07/24/21 07:52 96 H 97 07/24/21 07:49 95 H 143/66 H 07/24/21 07:47 93 H 97 07/24/21 07:42 89 98 07/24/21 07:37 83 98 07/24/21 07:34 84 128/59 L 07/24/21 07:32 82 98 07/24/21 07:27 85 98 07/24/21 07:22 79 100 07/24/21 07:21 81 124/59 L 07/24/21 07:19 37 C 81 20 124/59 L 98 07/24/21 07:17 97 H 100 07/24/21 07:16 37 C 20 07/24/21 07:12 89 100 07/24/21 07:07 68 97 07/24/21 07:04 67 114/56 L 07/24/21 07:02 69 97 07/24/21 06:57 71 98 07/24/21 06:52 97 H 100 07/24/21 06:49 37.0 C 83 173/77 H 07/24/21 06:47 71 100 07/24/21 06:42 90 98 07/24/21 06:37 72 98 07/24/21 06:34 37.2 C 77 16 117/65 07/24/21 06:32 82 97 07/24/21 06:27 73 97 07/24/21 06:22 78 98 07/24/21 06:18 68 120/60 91 07/24/21 06:17 75 96 07/24/21 06:16 36.9 C 77 18 120/60 92 07/24/21 06:12 68 98 07/24/21 06:11 68 128/69 07/24/21 06:07 68 97 07/24/21 06:02 67 97 07/24/21 05:57 69 98 07/24/21 05:56 67 120/66 07/24/21 05:52 68 98 07/24/21 05:47 68 98 07/24/21 05:42 80 99 07/24/21 05:41 67 113/58 L 07/24/21 05:37 69 100 07/24/21 05:32 70 98 07/24/21 05:27 78 99 07/24/21 05:26 67 112/56 L 07/24/21 05:22 68 98 07/24/21 05:17 73 97 07/24/21 05:16 76 90 07/24/21 05:12 78 95 07/24/21 05:11 82 127/62 07/24/21 05:07 82 97 07/24/21 05:02 82 98 07/24/21 04:57 66 98 07/24/21 04:56 65 119/60 07/24/21 04:52 67 97 07/24/21 04:50 37.0 C 07/24/21 04:47 66 98 07/24/21 04:42 73 98 07/24/21 04:41 63 114/59 L 07/24/21 04:37 64 97 07/24/21 04:32 66 98 07/24/21 04:27 63 98 07/24/21 04:26 61 106/55 L 07/24/21 04:22 72 98 07/24/21 04:21 115 H 131/77 07/24/21 04:20 37.3 C 07/24/21 04:17 74 95 07/24/21 04:16 67 103/55 L 07/24/21 04:12 73 98 07/24/21 04:11 76 16 99/52 L 98 07/24/21 04:07 80 98 07/24/21 04:06 71 97/52 L 07/24/21 04:05 36.8 C 07/24/21 04:02 91 H 98 07/24/21 04:01 90 104/55 L 07/24/21 03:58 82 105/56 L 07/24/21 03:57 75 98 07/24/21 03:56 77 101/56 L 07/24/21 03:52 86 97 07/24/21 03:50 37.0 C 73 18 95/53 L 07/24/21 03:49 73 95/53 L 07/24/21 03:48 37.0 C 80 18 95/53 L 97 07/24/21 03:47 79 99 07/24/21 03:44 85 108/59 L 07/24/21 03:42 82 98 07/24/21 03:37 77 98 07/24/21 03:35 37.3 C 85 18 108/59 L 98 07/24/21 03:32 94 H 98 07/24/21 03:27 86 96 07/24/21 03:22 93 H 100 07/24/21 03:17 102 H 99 07/24/21 03:12 92 H 99 07/24/21 03:10 86 112/57 L 07/24/21 03:07 89 98 07/24/21 03:02 86 98 07/24/21 03:01 100 H 92 07/24/21 03:00 96 H 146/62 H 07/24/21 02:57 90 99 07/24/21 02:52 106 H 97 07/24/21 02:50 102 H 137/66 07/24/21 02:47 98 H 98 07/24/21 02:42 93 H 99 07/24/21 02:40 100 H 108/67 07/24/21 02:37 94 H 98 07/24/21 02:32 106 H 99 07/24/21 02:30 37.1 C 108 H 18 117/62 07/24/21 02:27 105 H 100 07/24/21 02:22 113 H 100 07/24/21 02:20 112 H 120/59 L 07/24/21 02:17 118 H 100 07/24/21 02:13 131 H 127/64 07/24/21 02:12 129 H 99 07/24/21 02:09 134 H 123/80 07/24/21 02:07 132 H 99 07/24/21 01:00 88 94/52 L 100 07/24/21 00:56 106 H 84/45 L 07/24/21 00:55 116 H 100 07/24/21 00:50 84 98/54 L 100 07/24/21 00:45 108 H 88/52 L 99 07/24/21 00:40 89 93/50 L 100 07/24/21 00:37 76 94/54 L 07/24/21 00:35 82 100 07/24/21 00:30 93 H 101/55 L 87 L 07/24/21 00:29 92 H 91 07/24/21 00:27 93 H 96/46 L 07/24/21 00:25 90 98 07/24/21 00:21 88 91 07/24/21 00:20 87 94 07/24/21 00:18 85 89/50 L 07/24/21 00:16 84 87/48 L 92 07/24/21 00:15 80 96 07/24/21 00:10 89 79/45 L 91 07/23/21 23:46 111 H 96 07/23/21 23:44 104 H 116/68 07/23/21 23:42 106 H 93 07/23/21 23:41 103 H 97 07/23/21 23:36 112 H 98 07/23/21 23:35 106 H 94 07/23/21 23:34 107 H 108/57 L 07/23/21 23:31 106 H 98 07/23/21 23:29 104 H 92 07/23/21 23:26 104 H 98 07/23/21 23:24 95 H 117/56 L 07/23/21 23:21 104 H 95 07/23/21 23:16 96 H 97 07/23/21 23:14 106 H 108/53 L 07/23/21 23:11 111 H 95 07/23/21 23:06 99 H 96 07/23/21 23:04 105 H 107/57 L 07/23/21 23:01 116 H 96 07/23/21 22:56 110 H 98 07/23/21 22:54 101 H 110/70 07/23/21 22:51 112 H 96 07/23/21 22:46 108 H 99 07/23/21 22:45 102 H 131/55 L 07/23/21 22:41 101 H 97 07/23/21 22:36 114 H 97 07/23/21 22:31 119 H 99 07/23/21 22:26 107 H 93 07/23/21 22:24 123 H 126/59 L 07/23/21 22:22 127 H 129/59 L 07/23/21 22:21 127 H 100 07/23/21 22:16 144 H 100 07/23/21 22:11 148 H 100 07/23/21 22:06 153 H 100 07/23/21 22:01 118 H 98 07/23/21 21:56 116 H 98 07/23/21 21:54 120 H 112/57 L 07/23/21 21:51 116 H 98 07/23/21 21:46 121 H 98 07/23/21 21:44 142 H 107/62 07/23/21 21:41 146 H 116/62 100 07/23/21 21:36 148 H 100 07/23/21 21:34 133 H 122/59 L 07/23/21 21:31 152 H 100 07/23/21 21:26 127 H 98 07/23/21 21:22 120 H 121/66 07/23/21 21:21 132 H 97 07/23/21 21:17 139 H 98/54 L 07/23/21 21:16 152 H 99 07/23/21 20:02 96 H 121/57 L 07/23/21 20:01 96 H 99 07/23/21 19:56 93 H 97 07/23/21 19:51 99 H 98 07/23/21 19:47 98 H 124/61 07/23/21 19:46 101 H 99 07/23/21 19:41 100 H 99 07/23/21 19:39 113 H 146/65 H 07/23/21 19:36 128 H 100 07/23/21 19:31 108 H 100 07/23/21 19:26 90 97 07/23/21 19:21 96 H 99 07/23/21 19:18 80 119/75 07/23/21 19:16 91 H 97 07/23/21 19:11 104 H 99 07/23/21 19:06 91 H 99 07/23/21 19:03 90 137/70 07/23/21 19:01 88 99 07/23/21 19:00 37.3 C 18 07/23/21 18:56 105 H 100 07/23/21 18:51 90 100 07/23/21 18:47 105 H 130/61 07/23/21 18:46 92 H 100 07/23/21 18:41 99 H 100 07/23/21 18:36 90 100 07/23/21 18:31 101 H 100 07/23/21 18:26 72 100 07/23/21 18:21 84 100 07/23/21 18:17 82 126/58 L 07/23/21 18:16 80 100 07/23/21 18:11 79 99 07/23/21 18:06 79 99 07/23/21 18:02 72 113/56 L 07/23/21 18:01 76 99 07/23/21 17:56 81 99 07/23/21 17:51 88 99 07/23/21 17:46 81 119/74 97 07/23/21 17:41 82 98 07/23/21 17:36 82 99 07/23/21 17:31 107 H 116/73 99 07/23/21 17:26 87 99 07/23/21 17:21 84 99 07/23/21 17:18 72 117/72 07/23/21 17:16 79 99 07/23/21 17:11 75 99 07/23/21 17:06 84 97 07/23/21 17:03 88 102/62 07/23/21 17:01 89 98 07/23/21 16:56 90 99 07/23/21 16:51 76 99 07/23/21 16:46 70 125/68 100 07/23/21 16:41 70 99 07/23/21 16:36 78 94 07/23/21 16:33 70 121/59 L 07/23/21 16:31 86 99 07/23/21 16:26 80 100 07/23/21 16:22 78 90 07/23/21 16:21 75 98 07/23/21 16:16 71 126/68 99 07/23/21 16:11 71 99 07/23/21 16:06 66 99 07/23/21 16:02 76 122/64 07/23/21 16:01 79 99 07/23/21 15:56 76 100 07/23/21 15:51 79 100 07/23/21 15:47 77 130/72 07/23/21 15:46 78 97 07/23/21 15:42 80 94 07/23/21 15:41 73 96 07/23/21 15:36 82 96 07/23/21 15:32 81 118/70 07/23/21 15:31 97 H 99 07/23/21 15:26 92 H 98 07/23/21 15:21 79 98 07/23/21 15:18 71 110/68 07/23/21 15:16 85 97 07/23/21 15:15 37.0 C 16 07/23/21 15:11 75 98 07/23/21 15:06 97 H 100 07/23/21 15:02 83 124/82 07/23/21 15:01 83 99 07/23/21 14:56 86 98 07/23/21 14:51 79 98 07/23/21 14:46 76 97 07/23/21 14:41 64 99 07/23/21 14:37 36.8 C 18 07/23/21 14:36 90 100 07/23/21 14:33 79 120/59 L 07/23/21 14:31 73 99 07/23/21 14:26 70 99 07/23/21 14:21 69 100 07/23/21 14:17 81 125/72 07/23/21 14:16 84 100 07/23/21 14:11 82 99 07/23/21 14:06 92 H 100 07/23/21 14:02 72 123/76 07/23/21 14:01 86 99 07/23/21 13:56 79 99 07/23/21 13:51 80 99 07/23/21 13:48 68 127/67 07/23/21 13:46 67 99 07/23/21 13:41 84 98 07/23/21 13:36 71 100 07/23/21 13:32 71 111/57 L 07/23/21 13:31 79 96 07/23/21 13:26 89 99 07/23/21 13:21 88 99 07/23/21 13:18 88 117/76 07/23/21 13:16 81 100 07/23/21 13:14 98 H 113/69 07/23/21 13:12 77 124/64 07/23/21 13:11 87 98 07/23/21 13:10 82 125/70 07/23/21 13:08 81 126/77 07/23/21 13:06 79 118/66 97 07/23/21 13:05 18 07/23/21 13:04 88 119/66 07/23/21 13:02 87 115/72 07/23/21 13:01 90 99 07/23/21 13:00 86 122/75 07/23/21 12:58 84 127/77 07/23/21 12:56 93 H 126/82 100 07/23/21 12:54 88 137/78 07/23/21 12:51 86 100 07/23/21 12:46 85 100 07/23/21 12:29 91 H 100 07/23/21 12:04 73 124/63 07/23/21 12:01 36.9 C 18 07/23/21 11:26 72 120/71 07/23/21 11:25 36.6 C 18 07/23/21 11:00 18 07/23/21 10:35 78 116/74 Pain Intensity Bilateral Abdomen: Pain Intensity: 3 Transfer of Care Handoff Completed per policy Notes Mental Status: alert / awake / arousable Patient Amnestic to Procedure: Yes Nausea / Vomiting: adequately controlled Pain: adequately controlled Airway Patency, RR, SpO2: stable & adequate BP & HR: stable & adequate Hydration State: stable & adequate Anesthetic Complications: no major complications apparent and Pt Satisfied with anesthetic care Notes: The patient is awake and comfortable. She feels "a little tired." Her HR is now below 100 and her other vital signs are stable. She received a total of 4 units of PRBC as ordered by Dr. Ortiz. A hgb level was checked but is pending.
[2021-07-24 10:18] LABS: Basophils # (auto) 0.01 K/uL (0-0.2); Hematocrit (blood only) 27.5 % (37-47); Hemoglobin 9.6 g/dL (12.0-16.0); Immature Granulocytes # (auto) 0.08 K/uL (0.00-0.02); Immature Granulocytes % (auto) 0.4 %; Lymphocytes # (auto) 1.12 K/uL (1.2-3.4); Lymphocytes % (auto) 5.3 %; Mean Corpuscular Hemoglobin 29.7 pg (25-34); Mean Corpuscular Hgb Conc 34.9 g/dL (32-36); Mean Corpuscular Volume 85.1 fL (80-100); Mean Platelet Volume 11.4 fL (7.4-10.4); Monocytes # (auto) 1.26 K/uL (0.11-0.59); Monocytes % (auto) 5.9 %; Neutrophils # (auto) 18.77 K/uL (1.4-6.5); Neutrophils % (auto) 88.4 %; Platelet Count 136 K/uL (130-400); RDW Coefficient of Variation 13.8 % (11.5-14.5); RDW Standard Deviation 42.6 fL (36.4-46.3); Red Blood Count 3.23 M/uL (4.2-5.4); White Blood Count 21.24 K/uL (4.8-10.8)
[2021-07-24] MEDS: KETOROLAC 30 MG/ML VIAL IV PRN (11:43)
[2021-07-24] MEDS ORDERED: diphenhydrAMINE 50 MG/ML VIAL IV PRN (13:58)
[2021-07-24] MEDS ORDERED: KETOROLAC 30 MG/ML VIAL IV PRN (13:58)
[2021-07-24] MEDS ORDERED: diphenhydrAMINE Capsule 25 MG CAP PO PRN (13:58)
[2021-07-24 17:46] LABS: Hemoglobin 9.3 g/dL (12.0-16.0)
[2021-07-24] MEDS ORDERED: bisacodyL 5 MG TABEC PO SCH (20:00)
[2021-07-24] MEDS: oxyCODONE/ACETAMINOPHEN 5mg/325mg TAB PO PRN (20:34)
[2021-07-25] MEDS: IBUPROFEN 600 MG TAB PO PRN ×4 (00:13→18:36)
[2021-07-25] MEDS: oxyCODONE/ACETAMINOPHEN 5mg/325mg TAB PO PRN ×4 (00:13→18:36)
--- NOTE | 2021-07-25 01:45 | Billing Data ---
Date of Service July 24, 2021 Coding Level of Care Code 44020 Inpt Consult Level 3
--- NOTE | 2021-07-25 07:47 | Obstetrical Progress Note ---
Date of Service July 25, 2021 Assessment & Plan (1) delivery delivered: 20 yo with PMH of Hep C, depression/anxiety, substance use disorder, complicated by GDM, now POD2 from LTCS at 40wk6d for failure to progress Vitals normalized and stable, hemoglobin appropriately improved, s/p 4u pRBC. Minimal additional losses appropriate for lochia. Urine output adequate. Patient feeling well. Plan today to remove Bakri hour by hour, and take manley out when balloon removed. If still well by this afternoon, may be stable for D/C vs. stay until POD3 for continued obs. Blood type A-, GBS+, Rubella immune Subjective Patient feeling well, good energy, pain well managed, ambulating without difficulty. Eating/drinking. Voiding. Passing gas. Physical Exam Constitutional WD/WN, vitals as above Eyes PERRL, conjunctivae normal, anicteric sclerae ENMT external ear and nose normal, oropharynx normal Neck supple Respiratory normal respiratory effort and able to speak in complete sentences; no respiratory distress Cardiovascular Rate/Rhythm: regular rate and regular rhythm Gastrointestinal (Abdomen) Gravid / AGA, nontender Musculoskeletal no cyanosis or clubbing, extremities motor strength 5/5 Skin no rashes, warm and dry Neurologic patellar DTR's 2+ bilat, sensation intact Psychiatric A+Ox3, euthymic affect Genitourinary Manley and Bakri in place. Bakri drained of 180cc fluid without complication. Lymphatic no cervical or axillary lymphadenopathy Results & Data ([facility]) Vital Signs (Past 12 Hours) Vital Signs Temp Pulse Pulse Resp BP BP Pulse Ox 07/25/21 07:42 75 97 07/25/21 07:37 77 99 07/25/21 07:32 84 98 07/25/21 07:27 84 99 07/25/21 07:22 86 99 07/25/21 07:17 84 99 07/25/21 07:12 90 99 07/25/21 07:07 93 H 99 07/25/21 07:02 74 100 07/25/21 06:57 85 99 07/25/21 06:52 73 100 07/25/21 06:47 86 100 07/25/21 06:42 94 H 98 07/25/21 06:37 93 H 96 07/25/21 06:32 97 H 96 07/25/21 06:27 96 H 96 07/25/21 06:22 98 H 97 07/25/21 06:17 104 H 97 07/25/21 06:12 86 97 07/25/21 06:07 97 H 98 07/25/21 06:02 85 98 07/25/21 05:57 86 97 07/25/21 05:52 81 97 05 05:47 81 96 07/25/21 05:42 81 97 07/25/21 05:37 78 98 07/25/21 05:32 80 97 05 05:27 81 97 07/25/21 05:22 80 97 07/25/21 05:17 82 96 07/25/21 05:12 86 93 07/25/21 05:07 99 H 98 07/25/21 05:02 95 H 95 07/25/21 04:57 96 H 96 07/25/21 04:52 90 96 07/25/21 04:47 86 96 07/25/21 04:42 88 94 07/25/21 04:37 107 H 97 07/25/21 04:32 84 96 07/25/21 04:27 91 H 96 07/25/21 04:22 84 96 07/25/21 04:17 89 96 07/25/21 04:12 84 95 07/25/21 04:07 81 96 07/25/21 04:02 85 96 07/25/21 03:57 84 96 07/25/21 03:52 78 96 07/25/21 03:47 81 96 07/25/21 03:42 79 96 07/25/21 03:37 90 97 07/25/21 03:32 81 100 07/25/21 03:30 98.1 F 91 H 91 H 18 116/56 L 116/56 L 100 07/25/21 03:27 94 H 100 07/25/21 03:22 104 H 97 07/25/21 03:17 98 H 96 07/25/21 03:12 81 96 07/25/21 03:07 91 H 96 07/25/21 03:02 77 98 05 02:57 82 98 07/25/21 02:52 95 H 97 07/25/21 02:47 91 H 96 07/25/21 02:42 109 H 98 07/25/21 02:37 86 96 07/25/21 02:32 83 96 07/25/21 02:27 81 96 07/25/21 02:22 76 96 07/25/21 02:17 76 97 07/25/21 02:12 83 97 07/25/21 02:07 83 96 07/25/21 02:02 84 96 07/25/21 01:57 89 96 07/25/21 01:52 87 96 07/25/21 01:47 98 H 96 07/25/21 01:42 93 H 96 07/25/21 01:37 100 H 96 07/25/21 01:32 105 H 96 07/25/21 01:27 107 H 96 07/25/21 01:22 111 H 96 07/25/21 01:17 114 H 97 07/25/21 01:12 109 H 96 07/25/21 01:07 108 H 97 07/25/21 01:02 113 H 97 07/25/21 00:57 115 H 97 07/25/21 00:52 101 H 97 07/25/21 00:47 99 H 98 07/25/21 00:42 100 H 98 07/25/21 00:37 105 H 98 07/25/21 00:32 106 H 97 07/25/21 00:27 119 H 97 07/25/21 00:22 112 H 97 07/25/21 00:17 109 H 97 07/25/21 00:12 106 H 98 07/25/21 00:07 117 H 98 07/25/21 00:02 107 H 97 07/24/21 23:57 108 H 97 07/24/21 23:52 114 H 97 07/24/21 23:47 102 H 98 07/24/21 23:42 106 H 98 07/24/21 23:37 104 H 98 07/24/21 23:32 109 H 98 07/24/21 23:30 98.6 F 108 H 18 102/55 L 98 07/24/21 23:28 112 H 102/55 L 07/24/21 23:27 109 H 97 07/24/21 23:22 112 H 97 07/24/21 23:17 112 H 97 07/24/21 23:12 127 H 97 07/24/21 23:07 124 H 96 07/24/21 23:02 127 H 96 07/24/21 22:57 116 H 96 07/24/21 22:54 131 H 121/57 L 07/24/21 22:52 124 H 95 07/24/21 22:47 122 H 97 07/24/21 22:42 115 H 96 07/24/21 22:37 117 H 96 07/24/21 22:32 126 H 99 07/24/21 22:27 122 H 98 07/24/21 22:22 116 H 97 07/24/21 22:17 120 H 97 07/24/21 22:12 107 H 96 07/24/21 22:07 115 H 96 07/24/21 22:02 124 H 96 07/24/21 21:57 119 H 97 07/24/21 21:55 118 H 123/63 07/24/21 21:52 112 H 98 07/24/21 21:47 119 H 98 07/24/21 21:42 110 H 98 07/24/21 21:37 114 H 99 07/24/21 21:32 112 H 99 07/24/21 21:27 103 H 100 07/24/21 21:22 103 H 98 07/24/21 21:17 101 H 100 07/24/21 21:12 105 H 100 07/24/21 21:07 106 H 100 07/24/21 21:02 102 H 100 07/24/21 20:57 91 H 100 07/24/21 20:54 96 H 111/59 L 07/24/21 20:52 101 H 100 07/24/21 20:47 105 H 100 07/24/21 20:42 100 H 100 07/24/21 20:37 97 H 100 07/24/21 20:32 100 H 100 07/24/21 20:27 110 H 100 07/24/21 20:22 111 H 100 07/24/21 20:17 104 H 99 07/24/21 20:12 108 H 99 07/24/21 20:07 104 H 98 07/24/21 20:02 107 H 99 07/24/21 19:57 104 H 99 07/24/21 19:54 103 H 106/55 L 07/24/21 19:52 113 H 98 07/24/21 19:47 109 H 99
[2021-07-25 08:29] LABS: Hematocrit (blood only) 25.5 % (37-47); Hemoglobin 8.5 g/dL (12.0-16.0)
[2021-07-25] MEDS: AMPICILLIN/SULBACTAM SOD 1,500 MG in 0.9 % SODIUM CHLORIDE 100 ML IV SCH ×3 (09:00→15:35)
[2021-07-25] MEDS: DOCUSATE SODIUM 100 MG CAP PO SCH ×2 (09:31→20:10)
[2021-07-25] MEDS: SIMETHICONE 80 MG CHEW PO SCH ×4 (09:31→20:10)
[2021-07-25] MEDS: PRENATAL VITAMIN 1 TAB PO SCH (09:31)
[2021-07-25] MEDS: FERROUS SULFATE 325 MG TAB PO SCH (09:31)
--- NOTE | 2021-07-25 12:43 | Communication Note ---
Date of Service: July 25, 2021 Remainder of Bakri fluid removed, amounting to an additional 110cc. No further fluid could be obtained. The Bakri was gently pulled, and it came out easily with balloon completely collapsed. Quan was then deflated and removed as well.
--- NOTE | 2021-07-25 14:44 | Hospitalist Progress Note ---
Date of Service July 25, 2021 Assessment & Plan (1) Acute blood loss anemia: Plan: Christal is a 20 yo female, now POD #2 from a delivery due to FTP who experienced a post-operative hemorrhage - now status post clot evacuation and barkari balloon placement. Hospitalist consulted for management of acute blood loss anemia. Acute blood loss anemia, improved - Hgb 5.6 after clot evacuation --> down to 5.2 after 1 unit of pRBC - Patient initially tachycardic and normotensive --> HR subsequently normalized. Has since remained hemodynamically stable. - Patient received total of 4 units of PRBCs yesterday. - H&H today has increased appropriately and is 8.5 & 25.5 - Would recommend continuing with PNV and Iron 325mg po daily after discharge. Patient has remained stable. Hospitalist team will sign off. Please contact hospitalist team with any further questions. Thank you for allowing us to assist in the care of this patient. (2) Post-operative hemorrhage: Admission and Anticipated Discharge Date Admission Date: July 23, 2021 Supervising Physician Co-Signing Physician Notes Patient seen and examined with PGY 2 Dr. Gatica. Agree with history, exam findings, assessment and plan of care as outlined. In brief, Amie is a 20-year-old G1 with history of hepatitis C, depression and anxiety, substance use disorder who underwent section for failure to progress. course was complicated by significant bleeding. She had a Bakri placed that evening. She received 4 units of packed red blood cells with improvement in her hemoglobin. Today she is feeling tired, but generally well. Vital signs and nursing notes reviewed. She is pale appearing. Heart with regular rate and rhythm. Lungs are clear to auscultation in all lung berman. Labs reviewed. Acute blood loss anemia. Improved. Hemoglobin is greater than 4:08 units of packed red blood cells. Continue with vitamin and iron daily. At this point, since her bleeding has slowed and she has had a stable hemoglobin, will hospitalist service will sign off. Please feel free to contact us if there are any further questions or new concerns. Subjective Patient seen and evaluated at bedside this morning. She reports that she is overall doing well, just tired after delivery, which is understandable. Patient denies CP, SOB, BAIRD, lightheadedness, or dizziness. She has not yet been out of bed nor has she ambulated. She reports good appetite w/o abdominal pain, nausea, or vomiting. Patient w/o signs of excessive bleeding and lochia reportedly within normal limits. Patient with no other questions or concerns at this time. Review of Systems Review of Systems: See HPI Physical Exam Physical Exam: GENERAL: No acute distress. Well developed and well nourished. Vital signs reviewed as above. EYES: EOMI. Anicteric sclerae. Slight conjunctival pallor. HENT: Moist mucous membranes. RESPIRATORY: Clear to auscultation bilaterally. No wheezing, rales, or rhonchi. CARDIOVASCULAR: Regular rate and rhythm. No murmurs. ABDOMEN: Soft and non-tender. Normal bowel sounds. EXTREMITIES: SCDs in place bilateral lower extremities. NEUROLOGIC: A/O x3. No focal neurological deficits. PSYCHIATRIC: Cooperative. Appropriate mood and affect. Results & Data Results & Data ([facility]) Vital Signs (Past 12 Hours) Vital Signs Temp Pulse Pulse Resp BP BP Pulse Ox 07/25/21 13:42 97 H 100 07/25/21 13:40 36.6 C 92 H 20 109/65 07/25/21 13:37 96 H 99 07/25/21 13:32 102 H 98 07/25/21 13:27 92 H 99 07/25/21 13:22 95 H 98 07/25/21 13:17 104 H 98 07/25/21 13:12 101 H 98 07/25/21 13:07 99 H 98 07/25/21 13:02 92 H 98 07/25/21 12:57 101 H 99 07/25/21 12:52 96 H 98 07/25/21 12:47 93 H 99 07/25/21 12:42 94 H 98 07/25/21 12:37 87 99 07/25/21 12:32 112 H 99 07/25/21 12:27 107 H 97 07/25/21 12:22 109 H 97 07/25/21 12:17 105 H 97 07/25/21 12:12 98 H 97 07/25/21 12:07 100 H 97 07/25/21 12:02 103 H 98 07/25/21 11:57 97 H 97 07/25/21 11:52 93 H 98 07/25/21 11:47 93 H 98 07/25/21 11:42 84 98 07/25/21 11:37 98 H 98 07/25/21 11:32 93 H 98 07/25/21 11:27 92 H 98 07/25/21 11:22 93 H 98 07/25/21 11:17 101 H 98 07/25/21 11:12 90 98 07/25/21 11:07 95 H 99 07/25/21 11:02 94 H 99 07/25/21 10:57 92 H 98 07/25/21 10:52 96 H 99 07/25/21 10:47 86 97 07/25/21 10:42 84 99 07/25/21 10:37 109 H 97 07/25/21 10:32 90 97 07/25/21 10:27 92 H 97 07/25/21 10:22 97 H 97 07/25/21 10:17 116 H 98 07/25/21 10:12 103 H 99 07/25/21 10:07 108 H 97 07/25/21 10:02 106 H 98 07/25/21 09:57 105 H 97 07/25/21 09:52 106 H 97 07/25/21 09:47 105 H 98 07/25/21 09:42 108 H 97 07/25/21 09:37 105 H 98 07/25/21 09:32 110 H 98 07/25/21 09:27 113 H 97 07/25/21 09:22 115 H 97 07/25/21 09:17 111 H 97 07/25/21 09:12 109 H 96 07/25/21 09:08 94 H 116/59 L 07/25/21 09:07 105 H 98 07/25/21 09:02 98 H 98 07/25/21 08:57 105 H 99 07/25/21 08:52 102 H 98 07/25/21 08:47 103 H 99 07/25/21 08:42 94 H 99 07/25/21 08:37 92 H 100 07/25/21 08:32 92 H 99 07/25/21 08:30 36.8 C 20 07/25/21 08:27 85 100 07/25/21 08:22 85 99 07/25/21 08:17 83 100 07/25/21 08:12 89 99 07/25/21 08:07 94 H 99 07/25/21 08:02 96 H 98 07/25/21 07:57 75 99 07/25/21 07:52 82 99 07/25/21 07:47 92 H 98 07/25/21 07:42 75 97 07/25/21 07:37 77 99 07/25/21 07:32 84 98 07/25/21 07:27 84 99 07/25/21 07:22 86 99 07/25/21 07:17 84 99 07/25/21 07:12 90 99 07/25/21 07:07 93 H 99 05 07:02 74 100 05 06:57 85 99 07/25/21 06:52 73 100 07/25/21 06:47 86 100 07/25/21 06:42 94 H 98 07/25/21 06:37 93 H 96 07/25/21 06:32 97 H 96 07/25/21 06:27 96 H 96 07/25/21 06:22 98 H 97 07/25/21 06:17 104 H 97 07/25/21 06:12 86 97 07/25/21 06:07 97 H 98 07/25/21 06:02 85 98 07/25/21 05:57 86 97 07/25/21 05:52 81 97 07/25/21 05:47 81 96 07/25/21 05:42 81 97 07/25/21 05:37 78 98 07/25/21 05:32 80 97 07/25/21 05:27 81 97 07/25/21 05:22 80 97 05 05:17 82 96 05 05:12 86 93 05 05:07 99 H 98 05 05:02 95 H 95 05 04:57 96 H 96 05 04:52 90 96 05 04:47 86 96 05 04:42 88 94 05 04:37 107 H 97 05 04:32 84 96 05 04:27 91 H 96 05 04:22 84 96 05 04:17 89 96 05 04:12 84 95 05 04:07 81 96 12 04:02 85 96 07/25/21 03:57 84 96 07/25/21 03:52 78 96 07/25/21 03:47 81 96 07/25/21 03:42 79 96 07/25/21 03:37 90 97 07/25/21 03:32 81 100 07/25/21 03:30 36.7 C 91 H 91 H 18 116/56 L 116/56 L 100 07/25/21 03:27 94 H 100 07/25/21 03:22 104 H 97 07/25/21 03:17 98 H 96 07/25/21 03:12 81 96 07/25/21 03:07 91 H 96 07/25/21 03:02 77 98 07/25/21 02:57 82 98 07/25/21 02:52 95 H 97 07/25/21 02:47 91 H 96 07/25/21 02:42 109 H 98 07/25/21 02:37 86 96 Laboratory Results 07/25/21 07/25/21 07/24/21 Range/Units 07:51 07:51 17:37 Hgb 8.5 L 9.3 L (12.0-16.0) g/dL Hct 25.5 L 27.0 L (37-47) % Blood Type A Negative Screen Negative (Negative) Resident Activity Tracking Resident Involvement: Resident Care Provided Care Provided: Adult Hospital Medicine
[2021-07-25] MEDS ORDERED: AMPICILLIN/SULBACTAM SOD 1,500 MG in 0.9 % SODIUM CHLORIDE 100 ML IV SCH (15:15)
[2021-07-25] MEDS ORDERED: bisacodyL 10 MG SUPP PR PRN (21:12)
[2021-07-26] MEDS: oxyCODONE/ACETAMINOPHEN 5mg/325mg TAB PO PRN ×2 (05:47→12:08)
[2021-07-26] MEDS: IBUPROFEN 600 MG TAB PO PRN ×2 (05:48→12:07)
--- NOTE | 2021-07-26 05:58 | Hospitalist Progress Note ---
Date of Service July 26, 2021 Assessment & Plan Admission and Anticipated Discharge Date Admission Date: July 23, 2021
--- NOTE | 2021-07-26 06:37 | Obstetrical Progress Note ---
Date of Service July 26, 2021 Assessment & Plan (1) delivery delivered: Plan: 20yo POD 3 s/p LTCS) at 40 weeks 6 days -Continue routine care -Vitals reviewed- HDS, afebrile -GBS positive tx -Encourage ambulation, regular diet -Pain control with ibuprofen, acetaminophen PRN -Encourage -Hgb 8.5 -F/u in 6 weeks with OB Admission and Anticipated Discharge Date Admission Date: July 23, 2021 Supervising Physician Co-Signing Physician Notes Resident Physician Supervision Note: I interviewed and examined the patient. Discussed with Dr. Harvey and agree with findings and plan as documented in the note. Any exceptions or clarifications are listed here: [ ] Documented By: Cherise Drummond MD, FACOG Subjective Ambulation: ambulating normally Voiding: no voiding problems Passing Gas: Yes BM: yes Diet Tolerance: regular diet Lochia:: Small Feeding Type: breast and bottle feeding Current Pain Level(1-10): 4 on pain medications Review of Systems Review of Systems: Denies fevers/chills. Denies dyspnea, cough. Denies chest pain. Denies breast pain or discharge. Denies dysuria. Denies headache. Denies back pain. Physical Exam Physical Exam: General: Alert, oriented, no acute distress Cardiac: Regular rate and rhythm, normal S1, S2. No murmurs appreciated. Respiratory: Clear to auscultation b/l with good air flow entry, symmetric chest rise and fall. No wheezes or crackles. No increased work of breathing or access ory muscle use Abdomen: Soft, nontender, nondistended. Fundus firm and palpable at 2 cm below umbilicus. No guarding or rebound. Skin: No rashes or lesions, incision site healing well with no signs of infection Extremities: Warm, dry, well-perfused with capillary refill <2s b/l. No lower extremity edema, erythema or swelling. Negative Era's sign b/l. Resident Activity Tracking Resident Involvement: Resident Care Provided Care Provided: OB Delivery
[2021-07-26] MEDS: DOCUSATE SODIUM 100 MG CAP PO SCH (07:27)
[2021-07-26] MEDS: FERROUS SULFATE 325 MG TAB PO SCH (07:27)
[2021-07-26] MEDS: PRENATAL VITAMIN 1 TAB PO SCH (07:27)
[2021-07-26] MEDS: SIMETHICONE 80 MG CHEW PO SCH ×2 (07:27→12:08)
--- NOTE | 2021-07-27 13:42 | Discharge Summary ---
Date of Service July 27, 2021 Admission Exam (Per Admitting) Respiratory normal respiratory effort, lungs clear to auscultation Cardiovascular RRR, no murmur, no edema Gastrointestinal (Abdomen) normal bowel sounds, soft, nontender, no hepatosplenomegaly Discharge Data Consultations 07/23/21 08:49 Consult Anesthesiology Stat 07/24/21 02:01 Consult Hospitalist Stat Procedures Performed Operation Date: 07/23/21 20:15 Actual Procedures p Primary Section in OR #3 for Failure To Progress for a viable baby girl at 2035. - Alejandra Ortiz MD, FACOG Operation Date: 07/24/21 01:00 Actual Procedures p Exam Under Anesthesia - Alejandra Ortiz MD, FACOG Hospital Course (1) delivery delivered: 20yo POD 3 s/p LTCS) at 40 weeks 6 days -Continue routine care -Vitals reviewed- HDS, afebrile -GBS positive tx -Encourage ambulation, regular diet -Pain control with ibuprofen, acetaminophen PRN -Encourage -Hgb 8.5 -F/u in 6 weeks with OB Coding Level of Care Code None Diagnoses delivery delivered O82
== END 2021-07-26 16:10 | disposition home or self-care (01) | DRG 787 ==
LOC: 4S1 07:39 → 4S2 07-25 14:26
PROC: M.EUALD (2021-07-24 01:00)